=== PATIENT | female | born 1995 | race Caucasian/White ===

== ENCOUNTER 2020-10-02 15:28 | Outpatient (REF) | payer OTHER, SELFPAY | END 2020-10-02 15:29 | disposition home or self-care (01) | LOC: HO.LAB 15:28 | PROVIDERS: Visit Provider Internal Medicine | DX: Z20.828 Contact with and (suspected) exposure to other viral communicable diseases (principal) | CPT/HCPCS: C9803; U0003 ==

== ENCOUNTER → 2020-10-21 11:17 | Outpatient (BNVA) | payer OTHER, SELFPAY | PROVIDERS: PCP Internal Medicine; Visit Provider Obstetrics & Gynecology | DX: N91.2 Amenorrhea, unspecified (principal) | CPT/HCPCS: 99212 ==

== ENCOUNTER 2020-11-11 11:00 | Outpatient (REF) | payer OTHER, SELFPAY ==
[2020-11-13 19:17] LABS: C. trachomatis RNA TMA NOT DETECTED (NOT DETECTED); N. gonorrhoeae RNA TMA NOT DETECTED (NOT DETECTED)
== END 2020-11-11 11:01 | disposition home or self-care (01) ==
LOC: HO.LAB 11:00
PROVIDERS: PCP Internal Medicine; Visit Provider Obstetrics & Gynecology
DX: N93.9 Abnormal uterine and vaginal bleeding, unspecified (principal)
CPT/HCPCS: 36415; 81025; 87491; 87591; 99212

== ENCOUNTER 2020-11-17 09:38 | Outpatient (REF) | payer OTHER, SELFPAY ==
[2020-11-17 11:31] LABS: TSH reflex Free T4 0.49 mIU/mL (0.32-4.0)
[2020-11-18 06:28] LABS: Follicle Stimulating Hormone 11.2 mIU/mL; Prolactin 8.1 ng/mL
[2020-11-18 08:40] LABS: Syphilis Screen Nonreactive (Nonreactive)
[2020-11-18 09:16] LABS: HBsAGNum1 0.19 S/CO (0.00-0.99); HIV AB/AG Nonreactive (Nonreactive); HIV Num 1 0.09 S/CO (0.00-0.99); Hepatitis B Surface Antigen Negative (Negative)
[2020-11-19 00:27] LABS: C. trachomatis RNA TMA NOT DETECTED (NOT DETECTED); N. gonorrhoeae RNA TMA NOT DETECTED (NOT DETECTED)
[2020-11-21 12:13] LABS: Testosterone, Free 5.1 pg/mL (0.1-6.4); Testosterone, Total 37 ng/dL (2-45)
== END 2020-11-17 09:39 | disposition home or self-care (01) ==
LOC: HO.LAB 09:38
PROVIDERS: PCP Internal Medicine; Visit Provider Obstetrics & Gynecology
DX: N93.9 Abnormal uterine and vaginal bleeding, unspecified (principal); Z11.3 Encounter for screening for infections with a predominantly sexual mode of transmission
CPT/HCPCS: 36415; 83001; 84146; 84402; 84403; 84443; 86780; 87340; 87389; 87491; 87591

== ENCOUNTER 2020-11-19 10:56 | Outpatient (REF) | payer OTHER, SELFPAY ==
--- NOTE | 2020-11-19 11:00 | US_ITS ---
EXAMINATION: US PELVIS COMPLETE US PELVIS TRANSVAGINAL CLINICAL INFORMATION: Pelvic and perineal pain. COMPARISON: Pelvic ultrasound dated 09/03/2019 TECHNIQUE: Transabdominal and transvaginal imaging was performed. FINDINGS: The uterus is of normal size and echogenicity measuring 7.6 x 2.9 x 4 cm. A regular homogeneous endometrium is identified measuring 0.7 cm. Nabothian cysts are identified. The previously seen IUD is not present on the current examination. Both ovaries are of normal size and echogenicity. The right measures 2.9 x 1.8 x 2.3 cm for a volume of 6.3 mL. The left measures 2.4 x 1.7 x 2 cm for a volume of 4.3 mL. There is no pelvic free fluid. US/US transvaginal IMPRESSION: Unremarkable pelvic ultrasound.
--- NOTE | 2020-11-19 11:00 | US_ITS ---
EXAMINATION: US PELVIS COMPLETE US PELVIS TRANSVAGINAL CLINICAL INFORMATION: Pelvic and perineal pain. COMPARISON: Pelvic ultrasound dated 09/03/2019 TECHNIQUE: Transabdominal and transvaginal imaging was performed. FINDINGS: The uterus is of normal size and echogenicity measuring 7.6 x 2.9 x 4 cm. A regular homogeneous endometrium is identified measuring 0.7 cm. Nabothian cysts are identified. The previously seen IUD is not present on the current examination. Both ovaries are of normal size and echogenicity. The right measures 2.9 x 1.8 x 2.3 cm for a volume of 6.3 mL. The left measures 2.4 x 1.7 x 2 cm for a volume of 4.3 mL. There is no pelvic free fluid. US/US pelvic complete IMPRESSION: Unremarkable pelvic ultrasound.
== END 2020-11-19 10:57 | disposition home or self-care (01) ==
LOC: HO.US 10:56
PROVIDERS: Visit Provider Obstetrics & Gynecology
DX: R10.2 Pelvic and perineal pain (principal)
CPT/HCPCS: 76830; 76856

== ENCOUNTER 2021-07-23 16:05 | Emergency (ER) | payer OTHER, SELFPAY ==
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
[2021-07-23 18:25] VITALS: BP 114/64; PULSE 61; RESP 18; TEMP 36.9; O2SAT 99; BMI 29.9
[2021-07-23] MEDS: Acetaminophen 325 MG TABLET 650 MG PO (18:30)
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
--- NOTE | 2021-07-23 21:17 | PC.NURSE ---
x-ray obtained x-ray. awaiting for results.
--- NOTE | 2021-07-23 21:51 | PC.NURSE ---
splint applied to arm. pt tolerated well. pt verbalized u/s of d/c instructions and left ed ambulatory with steady even gait to wr.
== END 2021-07-23 22:02 | disposition home or self-care (01) ==
PROVIDERS: Emergency Provider Emergency Medicine Emergency Medical Services; PCP Internal Medicine
DX: S52.501A Unspecified fracture of the lower end of right radius, initial encounter for closed fracture (principal); S63.91XA Sprain of unspecified part of right wrist and hand, initial encounter; M25.531 Pain in right wrist; V43.52XA Car driver injured in collision with other type car in traffic accident, initial encounter; Y93.9 Activity, unspecified; Y92.410 Unspecified street and highway as the place of occurrence of the external cause; Y99.9 Unspecified external cause status; Z79.899 Other long term (current) drug therapy; F17.200 Nicotine dependence, unspecified, uncomplicated; Z71.6 Tobacco abuse counseling; F12.90 Cannabis use, unspecified, uncomplicated
CPT/HCPCS: 29130; 73110; 73130; 99283; 99284

== ENCOUNTER → 2021-07-26 11:04 | Outpatient (BNVA) | payer OTHER, SELFPAY | PROVIDERS: Visit Provider Physician Assistant | DX: S52.501A Unspecified fracture of the lower end of right radius, initial encounter for closed fracture (principal) | CPT/HCPCS: 25600; 29075 ==

== ENCOUNTER 2021-08-27 05:08 | Outpatient (REF) | payer OTHER, SELFPAY ==
--- NOTE | ~2021-08-27 | XR_ITS ---
EXAMINATION: XR WRIST, RIGHT CLINICAL INFORMATION: Pain in the right wrist COMPARISON: None TECHNIQUE: PA, lateral, and oblique views of the right wrist. FINDINGS: The distal radial intra-articular fracture seen on previous imaging is no longer visualized suggesting interval healing. The carpal rows are well aligned. Joint spaces are maintained. Soft tissues are unremarkable. XR/XR wrist RT min 3V IMPRESSION: Normal appearance of the right wrist. Interval healing of the intra-articular distal radial fracture.
== END 2021-08-27 05:09 | disposition home or self-care (01) ==
LOC: HO.HOSX 05:08
PROVIDERS: Visit Provider Physician Assistant
DX: S52.501D Unspecified fracture of the lower end of right radius, subsequent encounter for closed fracture with routine healing (principal)
CPT/HCPCS: 73110

== ENCOUNTER → 2021-09-28 12:26 | Outpatient (BNVA) | payer OTHER, SELFPAY | PROVIDERS: PCP Internal Medicine; Visit Provider Advanced Practice Midwife ==

== ENCOUNTER 2022-01-12 13:27 | Outpatient (REF) | payer OTHER, SELFPAY ==
[2022-01-13 05:26] LABS: CT PCR DETECTED (Not Detect.); NG PCR NOT DETECTED (Not Detect.)
[2022-01-13 15:44] LABS: BV Int Neg Control Negative (Negative); BV Int Pos Control Positive (Positive)
== END 2022-01-12 13:28 | disposition home or self-care (01) ==
LOC: HO.LAB 13:27
PROVIDERS: PCP Nurse Practitioner Family; Visit Provider Advanced Practice Midwife
DX: Z01.419 Encounter for gynecological examination (general) (routine) without abnormal findings (principal); N92.6 Irregular menstruation, unspecified; N89.8 Other specified noninflammatory disorders of vagina; Z20.2 Contact with and (suspected) exposure to infections with a predominantly sexual mode of transmission
CPT/HCPCS: 81025; 87480; 87491; 87510; 87591; 87660; 88142

== ENCOUNTER 2022-03-19 15:19 | Outpatient (REF) | payer OTHER, SELFPAY ==
[2022-03-19 16:04] LABS: Influenza A PCR POSITIVE (Negative); Influenza B PCR NEGATIVE (Negative); Resp Syncy Virus RNA Qual PCR NEGATIVE (Negative); SARS COV2 PCR INHOUSE NEGATIVE (Negative)
== END 2022-03-19 15:20 | disposition home or self-care (01) ==
LOC: HO.LNP 15:19
PROVIDERS: Visit Provider Nurse Practitioner Acute Care
DX: Z20.822 Contact with and (suspected) exposure to COVID-19 (principal); R68.89 Other general symptoms and signs
CPT/HCPCS: 0241U

== ENCOUNTER 2022-04-24 18:52 | Emergency (ER) | payer OTHER, SELFPAY ==
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
[2022-04-24 19:03] VITALS: BP 111/55; PULSE 82; RESP 16; TEMP 36.1; O2SAT 97; BMI 33.3
[2022-04-24] MEDS: Acetaminophen 325 MG TABLET 975 MG PO (19:37)
[2022-04-24] MEDS: Diphth,Pertus(ACell),Tet Adult 0.5 ML SYRINGE IM (20:38)
[2022-04-24 20:39] VITALS: RESP 16
[2022-04-24 21:02] VITALS: BP 123/56; PULSE 83; RESP 18; TEMP 36.6; O2SAT 98
[2022-04-24] MEDS: oxyCODONE HCl Immed Release 5 MG TABLET PO (21:38)
== END 2022-04-24 21:50 | disposition home or self-care (01) ==
PROVIDERS: Emergency Provider Emergency Medicine; PCP Internal Medicine
DX: S01.01XA Laceration without foreign body of scalp, initial encounter (principal); S06.0X0A Concussion without loss of consciousness, initial encounter; Y04.2XXA Assault by strike against or bumped into by another person, initial encounter; Y93.9 Activity, unspecified; Y92.830 Public park as the place of occurrence of the external cause; Y99.9 Unspecified external cause status
CPT/HCPCS: 12032; 70450; 72125; 90471; 90715; 99284

== ENCOUNTER 2022-06-01 21:02 | Emergency (ER) | payer OTHER, SELFPAY ==
[2022-06-01 21:11] VITALS: BP 105/42; PULSE 88; RESP 18; TEMP 36.8; O2SAT 96; BMI 33.3
[2022-06-01] MEDS: Acetaminophen 325 MG TABLET 650 MG PO (21:18)
--- NOTE | 2022-06-01 22:32 | ED.GENADULT ---
HPI - General Adult General Chief complaint: General Medical Stated complaint: ?insect bite left hand swelling Time Seen by Provider: 06/01/22 22:31 History of Present Illness HPI narrative: Patient is a 26-year-old female presents today with having possible insect bite to the left wrist. Complaining of swelling to the forearm. Patient is from home. No systemic complaints. No fever no chills. The insect bite occurred yesterday. The swelling has gotten worse. Positive itchiness positive blister Related Data Previous Rx's Medication Instructions Recorded loratadine 10 mg tablet 10 mg PO DAILY PRN for allergies 05/19/21 #21 tabs fluticasone propionate 50 1 spray intranasal DAILY #150 mL 05/31/21 mcg/actuation nasal spray,suspension (Flonase Allergy Relief) azithromycin 250 mg tablet See Rx Instructions PO .COMPLEX #6 03/19/22 tabs benzonatate 100 mg capsule 100 mg PO BID PRN cough #14 caps 03/19/22 guaifenesin 600 mg tablet, 600 mg PO BID #14 tabs 03/19/22 extended release 12 hr (Mucinex) cephalexin 500 mg capsule 500 mg PO TID 7 days #21 caps 06/01/22 Allergies Allergy/AdvReac Type Severity Reaction Status Date / Time No Known Allergies Allergy Verified 06/01/22 21:11 [No Known Allergies*] Review of Systems Review of Systems: No fever no chills no cough no congestion or upper respiratory symptoms no systemic complaints. Yes all other systems are reviewed and are negative PMFSH Past Medical History Attestation statement: The following information was validated with the patient. Medical History Metrorrhagia Surgical History History of cholecystectomy History of ear surgery Family History Family History Mother Substance use disorder Stomach cancer Father Substance use disorder Social History Social History Housing: Apartment Alcohol intake: never Patient Tobacco Use Status: Never used Tobacco e-Cigarette/Vaping Use: Currently Using Second Hand Smoke Exposure: No Substance Use Type: Marijuana Advance Directives: No Advance Directives Information Provided: No service: No Current occupational status: employed Gender identity: Female Physical Exam ED Vital Signs: Vital Signs - 24 hr 06/01/22 21:11 Temperature 98.2 F Pulse Rate 88 Respiratory Rate 18 Blood Pressure 105/42 L Pulse Oximetry 96 Oxygen Delivery Method Room Air BMI result Body Mass Index 33.3 Appearance: Alert. Oriented X3. No acute distress. Eyes: Pupils equal, round and reactive to light. ENT: Pharynx normal. Neck: Normal inspection. Neck supple. No lymph nodes noted. No crepitus CVS: Normal heart rate and rhythm. Pulses normal. Normal S1 and S2 Respiratory: No respiratory distress. Breath sounds normal. No Wheezing. No rales Abdomen: Soft and nontender. No rigidity. No distention. good BS x4 Skin: Skin warm and dry. Normal skin color. Normal skin turgor. Extremities: No lower extremity edema. Neurovascular intact to all extremities. No Lacerations. Examination of the left forearm shows blisters around the ulnar aspect of the left wrist. There is an area of redness that surrounds the wrist going all the way up approximately 2/3 of the forearm. There is slight redness. There is slight warmth to touch. Blanches. Neuro: Oriented X 3. No motor deficit. No sensory deficit. Moving all extermities. No slurred speech Medical Decision Making MDM Narrative Medical decision making narrative: Question allergic reaction versus infection. Given the extent of the rash will start patient on Keflex. Have patient follow-up closely on an outpatient basis. More likely this is a allergic reaction. She is in stable condition. Will discharge home. Discharge Plan Discharge Clinical Impression: Insect bite Patient Disposition: Home, Self-Care Instructions: Insect Bite or Sting (ED) Prescriptions: New cephalexin 500 mg capsule 500 mg PO TID 7 Days Qty: 21 0RF No Action loratadine 10 mg tablet 10 mg PO DAILY PRN (Reason: for allergies) Qty: 21 0RF fluticasone propionate [Flonase Allergy Relief] 50 mcg/actuation spray,suspension 1 spray intranasal DAILY Qty: 150 0RF Rx Instructions: administer into each nostril benzonatate 100 mg capsule 100 mg PO BID PRN (Reason: cough) Qty: 14 0RF azithromycin 250 mg tablet See Rx Instructions PO .COMPLEX Qty: 6 0RF Rx Instructions: For 250 mg dose pack: take 500 mg today (day 1), then 250 mg for 4 days (days 2-5) PO guaifenesin [Mucinex] 600 mg tablet extended release 12hr 600 mg PO BID Qty: 14 0RF Referrals: Swati Dangelo MD [Primary Care Provider] - 06/03/22
[2022-06-01] MEDS: cephALEXin 500 MG CAPSULE PO (23:17)
--- NOTE | 2022-06-01 23:18 | PC.NURSE ---
medicated per provider order.
== END 2022-06-01 23:20 | disposition home or self-care (01) ==
PROVIDERS: Emergency Provider Emergency Medicine Emergency Medical Services; PCP Internal Medicine
DX: S60.862A Insect bite (nonvenomous) of left wrist, initial encounter (principal); W57.XXXA Bitten or stung by nonvenomous insect and other nonvenomous arthropods, initial encounter; Y93.9 Activity, unspecified; Y92.9 Unspecified place or not applicable; Y99.9 Unspecified external cause status; Z79.899 Other long term (current) drug therapy
CPT/HCPCS: 99283

== ENCOUNTER 2023-01-26 08:50 | Outpatient (REF) | payer OTHER, SELFPAY | END 2023-01-26 08:51 | disposition home or self-care (01) | LOC: HO.LNP 08:50 | PROVIDERS: PCP Internal Medicine; Visit Provider Advanced Practice Midwife | DX: Z32.00 Encounter for pregnancy test, result unknown (principal) | CPT/HCPCS: 81025 ==

== ENCOUNTER 2023-01-26 09:44 | Outpatient (REF) | payer OTHER, SELFPAY ==
[2023-01-26 11:30] LABS: Thyroid Stimulating Hormone 1.51 uIU/mL (0.32-4.0)
[2023-01-26 16:06] LABS: CT PCR NOT DETECTED (Not Detect.); NG PCR NOT DETECTED (Not Detect.)
== END 2023-01-26 09:45 | disposition home or self-care (01) ==
LOC: HO.LAB 09:44
PROVIDERS: Visit Provider Advanced Practice Midwife
DX: N92.6 Irregular menstruation, unspecified (principal); N91.2 Amenorrhea, unspecified; Z20.2 Contact with and (suspected) exposure to infections with a predominantly sexual mode of transmission
CPT/HCPCS: 0353U; 84443

== ENCOUNTER → 2023-02-08 15:38 | Outpatient (BNVA) | payer OTHER, SELFPAY | PROVIDERS: PCP Internal Medicine; Visit Provider Advanced Practice Midwife ==

== ENCOUNTER → 2023-04-04 09:59 | Outpatient (BNVA) | payer OTHER, SELFPAY | PROVIDERS: PCP Internal Medicine; Visit Provider Advanced Practice Midwife | DX: Z30.09 Encounter for other general counseling and advice on contraception (principal); N92.6 Irregular menstruation, unspecified; Z32.02 Encounter for pregnancy test, result negative | CPT/HCPCS: 81025; 99212 ==

== ENCOUNTER 2023-05-22 10:47 | Outpatient (AMB) | payer OTHER, SELFPAY ==
[2023-05-22 10:54] VITALS: BP 118/74; BMI 36.9
--- NOTE | 2023-05-22 10:54 | MHC.OFFVIS ---
Intake Vital Signs 05/22/23 10:54 Height 5 ft 5 in Weight 222 lb BMI 36.9 BP 118/74 Intake Visit Reasons: STD Testing Supervisor Core Drilling Required: No Information Interpreted: non-clinical & clinical Intelligence Senior Sergeant: Intelligence Senior Sergeant Present (Lidia Yoo BRENNON) Accompanied by: Self / Same As Patient Allergies No Known Allergies [No Known Allergies*] Allergy (Verified 05/22/23 10:55) Is last menstrual period known: Yes Last menstrual period: 04/30/23 HPI HPI Comments History of Present Illness Details The patient is presenting for sexually transmitted disease screen, no vaginal discharge, no lesions identified and no specific sexually transmitted disease exposure according to the patient. [facility] Surgical History History of cholecystectomy History of ear surgery Family History Mother Substance use disorder Stomach cancer Father Substance use disorder Social History Housing: Apartment Alcohol intake: current Alcohol intake frequency: a few times a month Patient Tobacco Use Status: Current someday Tobacco user e-Cigarette/Vaping Use: Currently Using Second Hand Smoke Exposure: No Substance Use Type: Marijuana service: No Current occupational status: employed Sexual orientation: Straight/Heterosexual Gender identity: Female Female Reproductive History Menstrual Age of Menarche: 13 Date of last menstrual period: 04/30/23 Review of Systems Const All systems reviewed & are unremarkable except as noted in HPI and below Physical Exam Vital Signs: Last Vital Signs BP 118/74 05/22/23 10:54 BMI result Body Mass Index 36.9 General: Yes no CVA tenderness External Female Exam: normal external appearance and normal appearance of the urethra Speculum Exam - Vagina: normal appearance of the vagina, normal palpation, no lesions and no masses Speculum Exam - Cervix: normal appearance of the cervix, normal palpation, no lesions, no masses and nontender Bimanual exam- vagina & uterus: normal bimanual exam, normal palpation, uterine size normal, normal palpation, uterine shape normal, No Cervical tenderness present and non-tender Bimanual Exam- Adnexa, other: normal adnexae Back/Spine/Pelvis Back: no CVA tenderness Assessment & Plan Assessment & Plan (1) Screen for STD (sexually transmitted disease): Code(s): Z11.3 - Encounter for screening for infections with a predominantly sexual mode of transmission Plan: STD screening tests done includes: BV panel for trichomonas, GC/CT will send patient for serology std screening for HIV, RPR, Hep b s Ag, HepC Ab. Instructions given the patient to schedule a follow-up appointment for repeat serology screen in 6 months for possible false negatives. Orders: Orders Hepatitis B Surface Antigen Today Z20.2 - Contact with and (suspected) exposure to infections with a predominantly sexual mode of transmission Hepatitis C Antibody Today Z20.2 - Contact with and (suspected) exposure to infections with a predominantly sexual mode of transmission HIV Ab/Ag Today Z20.2 - Contact with and (suspected) exposure to infections with a predominantly sexual mode of transmission Syphilis Screen Today Z20.2 - Contact with and (suspected) exposure to infections with a predominantly sexual mode of transmission Coding Level of Care Code Est Pt Level 3 (15135) Diagnoses Screen for STD (sexually transmitted disease) Z11.3
== END 2023-05-22 11:00 | disposition home or self-care (01) ==
LOC: HO.HWS 10:48
PROVIDERS: PCP Internal Medicine; Visit Provider Obstetrics & Gynecology
DX: Z11.3 Encounter for screening for infections with a predominantly sexual mode of transmission (principal)
CPT/HCPCS: 99213

== ENCOUNTER 2023-05-22 10:47 | Outpatient (REF) | payer OTHER, SELFPAY ==
[2023-05-23 14:59] LABS: BV Int Neg Control Negative (Negative); BV Int Pos Control Positive (Positive)
== END 2023-05-22 10:48 | disposition home or self-care (01) ==
LOC: HO.LNP 10:47
PROVIDERS: PCP Internal Medicine; Visit Provider Obstetrics & Gynecology
DX: Z20.2 Contact with and (suspected) exposure to infections with a predominantly sexual mode of transmission (principal)
CPT/HCPCS: 87480; 87510; 87660; 99212

== ENCOUNTER 2023-05-22 11:08 | Outpatient (REF) | payer OTHER, SELFPAY ==
[2023-05-22 12:45] LABS: Syphilis Screen Nonreactive (Nonreactive)
[2023-05-22 18:18] LABS: CT PCR NOT DETECTED (Not Detect.); NG PCR NOT DETECTED (Not Detect.)
[2023-05-23 06:03] LABS: HBsAGNum1 0.35 S/CO (0.00-0.99); HIV AB/AG Nonreactive (Nonreactive); HIV Num 1 0.06 S/CO (0.00-0.99); Hepatitis B Surface Antigen Negative (Negative); ~HepC Num1 0.07 S/CO (0.00-0.79); ~Hepatitis C Antibody Nonreactive (Nonreactive)
== END 2023-05-22 11:09 | disposition home or self-care (01) ==
LOC: HO.LAB 11:08
PROVIDERS: Visit Provider Obstetrics & Gynecology
DX: Z20.2 Contact with and (suspected) exposure to infections with a predominantly sexual mode of transmission (principal)
CPT/HCPCS: 0353U; 86780; 86803; 87340; 87389

== ENCOUNTER 2023-07-20 12:56 | Outpatient (AMB) | payer OTHER, SELFPAY ==
[2023-07-20 13:13] VITALS: BP 110/70; BMI 36.6
--- NOTE | 2023-07-20 13:13 | MHC.OFFVIS ---
Intake Vital Signs 07/20/23 13:13 Height 5 ft 5 in Weight 220 lb BMI 36.6 BP 110/70 Intake Visit Reasons: Pill check Intake Note: The patient agreed to use of a medical instrument cable fabricator during this encounter. Scribed for ELE Johnson by Juhi Humphries medical instrument cable fabricator, on 07/20/2023 at 1:23 pm EST. Allergies No Known Allergies [No Known Allergies*] Allergy (Verified 07/20/23 13:13) Is last menstrual period known: Yes Last menstrual period: 05/31/23 HPI HPI Comments History of Present Illness Details She is here for OCP check today. Currently stopped taking the pill due to forgetting. She is other mejia doing well with OCP and wants to restart. Reports having trouble remembering to take OCP despite a cell phone alert. She admits to taking Melatonin at night before bed regularly. UPI 3 months ago, currently not sexually active. She is interested in natural ways of helping menses and weight loss. Reports having IUD in the past and it fell out. She denies any contraindications to control such as: migraines with aura, history of DVT or pulmonary emboli, high blood pressure, liver disease, thrombolic disorders, Lupus, +NADIA, or smoking. [facility] Surgical History History of cholecystectomy History of ear surgery Family History Mother Substance use disorder Stomach cancer Father Substance use disorder Social History Housing: Apartment Alcohol intake: current Alcohol intake frequency: a few times a month Patient Tobacco Use Status: Current someday Tobacco user e-Cigarette/Vaping Use: Currently Using Second Hand Smoke Exposure: No Substance Use Type: Marijuana service: No Current occupational status: employed Sexual orientation: Straight/Heterosexual Gender identity: Female Female Reproductive History Menstrual Age of Menarche: 13 Date of last menstrual period: 05/31/23 Physical Exam Vital Signs: Last Vital Signs BP 110/70 07/20/23 13:13 BMI result Body Mass Index 36.6 Const General: cooperative, healthy appearing, comfortable, no acute distress, well developed, alert and awake Results AMB Test Urine AMB Test Urine Negative Last Edit by BRENNON Lantigua on 07/20/23 13:31 Results Reviewed Results Reviewed: Laboratory Last Values Tst Clinic Negative 07/20/23 13:31 Assessment & Plan Assessment & Plan (1) Contraceptive surveillance: Code(s): Z30.40 - Encounter for surveillance of contraceptives, unspecified Plan: Discussed: D/w pt the different options of control. Continue TAMMY OCP. Advised to take it at night with melatonin supplement. Monitor her bleeding and contact the office with any concerns. She was instructed to go to ER if she develops loss of vision, severe headache that does not resolve, chest pain, difficulty breathing, abdominal pain, or pain or tenderness in extremity. Call the office with any concerns. Rx for TAMMY sent to pharmacy. Advised condoms always when sexually active. RTO when still taking OCP; last pack before it is done, can be done with her annual mold insert changer visit in early September. All of her questions and concerns were addressed to the best of my ability and shared decision making. She is agreeable to plan of care. Orders: Orders AMB HCG Urine Test Today Z32.02 - Encounter for test, result negative Medications: New drospirenone-ethinyl estradiol 3-0.02 mg (TAMMY (28)) 1 tab PO DAILY 84 tabs 0RF Coding Level of Care Code Est Pt Level 3 (46105) Diagnoses Contraceptive surveillance Z30.40
== END 2023-07-20 13:34 | disposition home or self-care (01) ==
PROVIDERS: Visit Provider Advanced Practice Midwife
DX: Z32.02 Encounter for pregnancy test, result negative (principal); Z30.40 Encounter for surveillance of contraceptives, unspecified
CPT/HCPCS: 99213

== ENCOUNTER → 2023-07-20 12:56 | Outpatient (BNVA) | payer OTHER, SELFPAY | PROVIDERS: Visit Provider Advanced Practice Midwife | DX: Z30.40 Encounter for surveillance of contraceptives, unspecified (principal) | CPT/HCPCS: 81025; 99212 ==

== ENCOUNTER 2023-12-11 12:20 | Outpatient (AMB) | payer OTHER, SELFPAY ==
--- NOTE | 2023-12-11 13:17 | AM.OFFWIN_ITS ---
Intake Vital Signs 12/11/23 13:18 Height 5 ft 5 in Weight 220 lb BMI 36.6 BP 112/70 Blood Pressure Location Rt brachial Position Sitting Pulse 82 Pulse Source Pulse Oximeter Temp 97.9 F Temp Source Oral Pulse Oximetry (%) 98 Intake Visit Reasons: EST/blood coming from ight ear, joint pain (lobby) Intake Note: pt is here for c.o blood on qtip yesterday in left ear, and would like a [place] blood test Patient Tobacco Use Status: Current someday Tobacco user Allergies No Known Allergies [No Known Allergies*] Allergy (Verified 12/11/23 14:17) Medication List - Last Reconciled 12/11/23 by Franky Barnard MD [id number] 3.5-10,000-1 mg/mL-unit/mL-% 4 drps otic (ears) Q8H Do you need a note to return to daycare/school/sports/work: No HPI EST/blood coming from ight ear, joint pain (lobby) HPI Details 27 yr old female presents to the office for a sick visit. Pt is reporting itching and discomfirt in the left ear. She used a Q tip and subsequently the left ear was bleeding. Minimal discomfirt today. Wants to be tested for lyme disease. Had a tick bite a month ago. [facility] Surgical History History of cholecystectomy History of ear surgery Family History Mother Substance use disorder Stomach cancer Father Substance use disorder Social History Housing: Apartment Alcohol intake: current Alcohol intake frequency: a few times a month Patient Tobacco Use Status: Current someday Tobacco user e-Cigarette/Vaping Use: Currently Using Second Hand Smoke Exposure: No Substance Use Type: Marijuana service: No Current occupational status: employed Sexual orientation: Straight/Heterosexual Gender identity: Female Female Reproductive History Menstrual Age of Menarche: 13 Physical Exam Vital Signs: Last Vital Signs Temp 97.9 F 12/11/23 13:18 Pulse 82 12/11/23 13:18 BP 112/70 12/11/23 13:18 Pulse Ox 98 12/11/23 13:18 BMI result Body Mass Index 36.6 HEENT Other: Left ear: Minor congestion in the ear canal. TM is intact. No mastoid tenderness. Assessment & Plan Assessment & Plan (1) Otitis externa of left ear: Code(s): H60.92 - Unspecified otitis externa, left ear Plan: neomycin drops called in. If sx do not improve to follow up here, (2) Tick bite: Code(s): W57.XXXA - Bitten or stung by nonvenomous insect and other nonvenomous arthropods, initial encounter Plan: Lyme titre ordered. will call with results. Orders: Orders Erythrocyte Sedimentation Rate Today W57.XXXA - Bitten or stung by nonvenomous insect and other nonvenomous arthropods, initial encounter Lyme IgG/IgM w/reflex to WB Today W57.XXXA - Bitten or stung by nonvenomous insect and other nonvenomous arthropods, initial encounter Medications: New syopeity-pyowojggg-NO 3.5-10,000-1 mg/mL-unit/mL-% 4 drps otic (ears) Q8H 10 mL 0RF Coding Level of Care Code Est Pt Level 3 (57141) Diagnoses Otitis externa of left ear H60.92 Tick bite W57.XXXA
[2023-12-11 13:18] VITALS: BP 112/70; PULSE 82; TEMP 36.6; O2SAT 98; BMI 36.6
== END 2023-12-11 14:36 | disposition home or self-care (01) ==
PROVIDERS: Visit Provider Internal Medicine
DX: H60.92 Unspecified otitis externa, left ear (principal); W57.XXXA Bitten or stung by nonvenomous insect and other nonvenomous arthropods, initial encounter
CPT/HCPCS: 99213

== ENCOUNTER 2023-12-11 14:16 | Outpatient (REF) | payer OTHER, SELFPAY ==
[2023-12-11 17:32] LABS: Erythrocyte Sedimentation Rate 17 MM/HR (0-20)
[2023-12-12 09:38] LABS: Lyme Abs Screen <0.90 index
== END 2023-12-11 14:17 | disposition home or self-care (01) ==
LOC: HO.HMGCLDS 14:16
PROVIDERS: Visit Provider Internal Medicine
DX: T14.8XXA Other injury of unspecified body region, initial encounter (principal); W57.XXXA Bitten or stung by nonvenomous insect and other nonvenomous arthropods, initial encounter; Y93.9 Activity, unspecified; Y92.9 Unspecified place or not applicable; Y99.9 Unspecified external cause status
CPT/HCPCS: 36415; 85652; 86617; 86618

== ENCOUNTER 2024-01-04 08:08 | Outpatient (AMB) | payer OTHER, SELFPAY ==
[2024-01-04 08:48] VITALS: BP 110/60; PULSE 86; TEMP 36.1; O2SAT 98; BMI 35.8
--- NOTE | 2024-01-04 08:48 | AM.OFFWIN_ITS ---
Intake Vital Signs 01/04/24 08:48 Height 5 ft 5 in Weight 215 lb BMI 35.8 BP 110/60 Blood Pressure Location Lt brachial Position Sitting Pulse 86 Pulse Source Pulse Oximeter Temp 97.0 F Temp Source Temporal Artery Scan Pulse Oximetry (%) 98 Oxygen Delivery Method Room Air Intake Visit Reasons: EP Sore throat [phone] Intake Note: pt is here today for sore throat started 2 days ago Patient Tobacco Use Status: Current someday Tobacco user Allergies No Known Allergies [No Known Allergies*] Allergy (Verified 01/04/24 08:49) Do you need a note to return to daycare/school/sports/work: No HPI HPI Comments History of Present Illness Details 28 y/o female patient who presents to [facility] in clinic with c/o sore- throat for 1 week. Denies any sick contacts. Denies fevers, chills, nausea or vomiting. She has been taking OTC remedies with minimal relief. [facility] Surgical History History of cholecystectomy History of ear surgery Family History Mother Substance use disorder Stomach cancer Father Substance use disorder Social History Housing: Apartment Alcohol intake: current Alcohol intake frequency: a few times a month Patient Tobacco Use Status: Current someday Tobacco user e-Cigarette/Vaping Use: Currently Using Second Hand Smoke Exposure: No Substance Use Type: Marijuana service: No Current occupational status: employed Sexual orientation: Straight/Heterosexual Gender identity: Female Female Reproductive History Menstrual Age of Menarche: 13 Physical Exam Vital Signs: Last Vital Signs Temp 97.0 F 01/04/24 08:48 Pulse 86 01/04/24 08:48 BP 110/60 01/04/24 08:48 Pulse Ox 98 01/04/24 08:48 Oxygen Delivery Method Room Air 01/04/24 08:48 BMI result Body Mass Index 35.8 Const General: comfortable and no acute distress Orientation/consciousness: patient oriented x3 HEENT Head: Yes normocephalic Ears: external ears normal and TM's normal bilaterally General nose exam: Normal nasal mucous membranes and turbinates present Face and sinus: Yes sinuses nontender Mouth: moist mucous membranes Throat: Yes posterior oropharynx normal Resp Effort & Inspection: normal respiratory effort, able to speak in complete sentences and no cough Auscultation: clear to auscultation bilaterally, no crackles, no rales, no rhonchi and no wheezes Cardio Rate: regular rate Rhythm: regular rhythm Neuro General: patient oriented x3 Results AMB Rapid Strep AMB Rapid Strep Negative Last Edit by Skylar Brock on 01/04/24 09:10 Results Reviewed Results Reviewed: Laboratory Last Values Strep Scn Rapid Clinic Negative 01/04/24 09:10 Assessment & Plan Assessment & Plan (1) Acute pharyngitis: Code(s): J02.9 - Acute pharyngitis, unspecified Qualifiers: Pharyngitis/tonsillitis etiology: unspecified etiology Qualified Code(s): J02.9 - Acute pharyngitis, unspecified Plan: - OTC remedies - Take medicine as directed. - Rest and warm fluids Orders: Orders SARS-CoV2/FLU/RSV Today J02.9 - Acute pharyngitis, unspecified Medications: New amoxicillin 500 mg PO BID 7 days 14 caps 0RF J02.9 - Acute pharyngitis, unspecified Coding Level of Care Code Est Pt Level 3 (95526) Diagnoses Acute pharyngitis, unspecified etiology J02.9 Pharyngitis/tonsillitis etiology: unspecified etiology Time Spent (min) 15
== END 2024-01-04 09:49 | disposition home or self-care (01) ==
PROVIDERS: Visit Provider Nurse Practitioner Family
DX: J02.9 Acute pharyngitis, unspecified (principal)
CPT/HCPCS: 87880; 99213

== ENCOUNTER 2024-01-04 09:42 | Outpatient (REF) | payer OTHER, SELFPAY ==
[2024-01-04 14:10] LABS: Influenza A PCR NEGATIVE (Negative); Influenza B PCR NEGATIVE (Negative); Resp Syncy Virus RNA Qual PCR NEGATIVE (Negative); SARS COV2 PCR INHOUSE NEGATIVE (Negative)
== END 2024-01-04 09:43 | disposition home or self-care (01) ==
LOC: HO.LAB 09:42
PROVIDERS: Visit Provider Nurse Practitioner Family
DX: J02.9 Acute pharyngitis, unspecified (principal); Z11.52 Encounter for screening for COVID-19; Z20.828 Contact with and (suspected) exposure to other viral communicable diseases
CPT/HCPCS: 0241U

== ENCOUNTER 2024-01-22 08:17 | Outpatient (AMB) | payer OTHER, SELFPAY ==
--- NOTE | 2024-01-22 08:18 | AM.OFFWIN_ITS ---
Intake Vital Signs 01/22/24 08:19 Height 5 ft 5 in Weight 214 lb 6 oz BMI 35.7 BP 100/62 Blood Pressure Location Rt brachial Position Sitting Pulse 79 Pulse Source Pulse Oximeter Temp 98.3 F Temp Source Oral Pulse Oximetry (%) 98 Oxygen Delivery Method Room Air Intake Visit Reasons: EP Something stuck in RT ear Intake Note: pt was itching her right ear with a q-tip and she got it stuck inside on Mon she says she noticed some drainage from her ear pt says she thinks she had an allergic reaction to something and toke an amoxicillin for this yesterday Patient Tobacco Use Status: Current someday Tobacco user Allergies No Known Allergies [No Known Allergies*] Allergy (Verified 01/22/24 08:22) Do you need a note to return to daycare/school/sports/work: No HPI EP Something stuck in RT ear HPI Details 28-year-old female presents to the [facility] for a sick visit. Patient believes she left a part of the Q-tip in the right ear on Monday. She has history of problems in the right ear, a tympanic membrane was recently patched. [facility] Surgical History History of cholecystectomy History of ear surgery Family History Mother Substance use disorder Stomach cancer Father Substance use disorder Social History Housing: Apartment Alcohol intake: current Alcohol intake frequency: a few times a month Patient Tobacco Use Status: Current someday Tobacco user e-Cigarette/Vaping Use: Currently Using Second Hand Smoke Exposure: No Substance Use Type: Marijuana service: No Current occupational status: employed Sexual orientation: Straight/Heterosexual Gender identity: Female Female Reproductive History Menstrual Age of Menarche: 13 Physical Exam Vital Signs: Last Vital Signs Temp 98.3 F 01/22/24 08:19 Pulse 79 01/22/24 08:19 BP 100/62 01/22/24 08:19 Pulse Ox 98 01/22/24 08:19 Oxygen Delivery Method Room Air 01/22/24 08:19 BMI result Body Mass Index 35.7 HEENT Other: Right ear: Ear canal mildly congested. Tympanic membrane dull. No foreign body seen. No mastoid tenderness. Assessment & Plan Assessment & Plan (1) Foreign body in right ear: Code(s): T16.1XXA - Foreign body in right ear, initial encounter Plan: Patient was informed that I did not see any foreign body. The cotton ball could have dissolved. She has a year no sort appointment coming up. I encouraged her to keep it. Coding Level of Care Code Est Pt Level 3 (23514) Diagnoses Foreign body in right ear T16.1XXA
[2024-01-22 08:19] VITALS: BP 100/62; PULSE 79; TEMP 36.8; O2SAT 98; BMI 35.7
== END 2024-01-22 10:16 | disposition home or self-care (01) ==
PROVIDERS: Visit Provider Internal Medicine
DX: T16.1XXA Foreign body in right ear, initial encounter (principal)
CPT/HCPCS: 99213

== ENCOUNTER 2024-01-23 08:22 | Outpatient (AMB) | payer OTHER, SELFPAY ==
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
[2024-01-23 08:25] VITALS: BP 100/64; BMI 35.6
== END 2024-01-23 09:04 | disposition home or self-care (01) ==
LOC: HO.HWS 08:22
PROVIDERS: Visit Provider Advanced Practice Midwife
DX: Z32.02 Encounter for pregnancy test, result negative (principal); Z01.419 Encounter for gynecological examination (general) (routine) without abnormal findings
CPT/HCPCS: 99395

== ENCOUNTER 2024-01-23 08:22 | Outpatient (REF) | payer OTHER, SELFPAY ==
[2024-01-24 05:40] LABS: CT PCR NOT DETECTED (Not Detect.); NG PCR NOT DETECTED (Not Detect.)
[2024-01-24 10:18] LABS: BV Int Neg Control Negative (Negative); BV Int Pos Control Positive (Positive)
== END 2024-01-23 08:23 | disposition home or self-care (01) ==
LOC: HO.LAB 08:22
PROVIDERS: Visit Provider Advanced Practice Midwife
DX: Z01.419 Encounter for gynecological examination (general) (routine) without abnormal findings (principal); N89.8 Other specified noninflammatory disorders of vagina
CPT/HCPCS: 0353U; 81025; 87480; 87510; 87660; 99395

== ENCOUNTER 2024-01-23 08:59 | Outpatient (REF) | payer OTHER, SELFPAY | END 2024-01-23 09:00 | disposition home or self-care (01) | LOC: HO.LNP 08:59 | PROVIDERS: Visit Provider Advanced Practice Midwife | DX: Z13.89 Encounter for screening for other disorder (principal) ==

== ENCOUNTER 2024-02-01 09:24 | Outpatient (AMB) | payer OTHER, SELFPAY ==
[2024-02-01 09:34] VITALS: BP 108/68; BMI 35.6
--- NOTE | 2024-02-01 09:34 | A.OFFVIS_ITS ---
Intake Vital Signs 02/01/24 09:34 Height 5 ft 5 in Weight 214 lb BMI 35.6 BP 108/68 Blood Pressure Location Lt brachial Position Sitting Intake Visit Reasons: amenenorrhea Information Interpreted: non-clinical & clinical Manager Telemetry: Manager Telemetry Present Accompanied by: Self / Same As Patient Allergies No Known Allergies [No Known Allergies*] Allergy (Verified 02/01/24 09:38) HPI HPI Comments History of Present Illness Details presenting complaining of 7 months amenorrhea with no associated hirsutism or nipple discharge any other concerns PFSH Medical History Amenorrhea Irregular menses Surgical History History of cholecystectomy History of ear surgery Family History Mother Substance use disorder Stomach cancer Father Substance use disorder Social History Housing: Apartment Alcohol intake: current Alcohol intake frequency: a few times a month Patient Tobacco Use Status: Current someday Tobacco user e-Cigarette/Vaping Use: Currently Using Second Hand Smoke Exposure: No Substance Use Type: Marijuana service: No Current occupational status: employed Sexual orientation: Straight/Heterosexual Gender identity: Female Female Reproductive History Menstrual Age of Menarche: 13 Review of Systems Const All systems reviewed & are unremarkable except as noted in HPI and below Physical Exam Vital Signs: Last Vital Signs BP 108/68 02/01/24 09:34 BMI result Body Mass Index 35.6 General: Yes no CVA tenderness External Female Exam: normal external appearance and normal appearance of the urethra Speculum Exam - Vagina: normal appearance of the vagina, normal palpation, no lesions and no masses Speculum Exam - Cervix: normal appearance of the cervix, normal palpation, no lesions, no masses and nontender Bimanual exam- vagina & uterus: normal bimanual exam, normal palpation, uterine size normal, normal palpation, uterine shape normal, No Cervical tenderness present and non-tender Bimanual Exam- Adnexa, other: normal adnexae Back/Spine/Pelvis Back: no CVA tenderness Results AMB Test Urine AMB Test Urine Negative Last Edit by Annemarie Briceno MA on 02/01/24 09:46 Assessment & Plan Assessment & Plan (1) Amenorrhea: Code(s): N91.2 - Amenorrhea, unspecified Plan: Urine test done in the office was negative. Discussed with the patient the possible causes of amenorrhea including but not limited to anovulation, thyroid and prolactin disorders, , end organ problems (uterine synechiae), medication side effects and others. The workup includes to start with UPT Which was done in the office and was negative this will be followed by a progesterone withdrawal test x 5 days if + bleeding this will be followed by TSH, PRL if negative then the diagnosis is anovulation. if no bleeding occurs will treat with Premarin x 21 days followed by Provera if no bleeding occurs will rule out Premature ovarian failure with FSH/LH. Instructions given the patient to schedule a 2 week follow-up appointment Orders: Orders AMB HCG Urine Test Today Z32.02 - Encounter for test, res ult negative TSH reflex Free T4 Today N91.2 - Amenorrhea, unspecified Prolactin Today N91.2 - Amenorrhea, unspecified HCG Quantitative Today N91.2 - Amenorrhea, unspecified Coding Level of Care Code Est Pt Level 3 (25699) Diagnoses Amenorrhea N91.2
== END 2024-02-01 09:52 | disposition home or self-care (01) ==
PROVIDERS: Visit Provider Obstetrics & Gynecology
DX: N91.2 Amenorrhea, unspecified (principal); Z32.02 Encounter for pregnancy test, result negative
CPT/HCPCS: 99213

== ENCOUNTER → 2024-02-01 09:24 | Outpatient (BNVA) | payer OTHER, SELFPAY | PROVIDERS: Visit Provider Obstetrics & Gynecology | DX: N91.2 Amenorrhea, unspecified (principal) | CPT/HCPCS: 81025; 99212 ==

== ENCOUNTER 2024-03-06 14:09 | Outpatient (REF) | payer OTHER, SELFPAY ==
[2024-03-06 16:38] LABS: HCG Quantitative < 2 mIU/mL; TSH reflex Free T4 2.25 uIU/mL (0.32-4.0)
== END 2024-03-06 14:10 | disposition home or self-care (01) ==
LOC: HO.LAB 14:09
PROVIDERS: Visit Provider Obstetrics & Gynecology
DX: N91.2 Amenorrhea, unspecified (principal)
CPT/HCPCS: 36415; 84146; 84443; 84702

== ENCOUNTER 2024-03-11 13:54 | Outpatient (AMB) | payer OTHER, SELFPAY ==
--- NOTE | 2024-03-11 13:54 | MHC.OFFVIS ---
Intake Visit Reasons: labs follow up Facility Engineer Required: No Information Interpreted: non-clinical & clinical Allergies No Known Allergies [No Known Allergies*] Allergy (Verified 03/11/24 13:55) HPI Comments Details: The patient is scheduled tele health visit for follow-up regarding amenorrhea. Urine test done in the office last visit was negative. TSH, prolactin, hCG, GC and chlamydia at BV panel all were negative. The patient is not sexually active [facility] Medical History Amenorrhea Irregular menses Surgical History History of cholecystectomy History of ear surgery Family History Mother Substance use disorder Stomach cancer Father Substance use disorder Social History Housing: Apartment Alcohol intake: current Alcohol intake frequency: a few times a month Patient Tobacco Use Status: Current someday Tobacco user e-Cigarette/Vaping Use: Currently Using Second Hand Smoke Exposure: No Substance Use Type: Marijuana service: No Current occupational status: employed Sexual orientation: Straight/Heterosexual Gender identity: Female Female Reproductive History Menstrual Age of Menarche: 13 Review of Systems Const All systems reviewed & are unremarkable except as noted in HPI and below Reports as per HPI and Reports no additional complaints GI Reports no additional complaints Reports no additional complaints Telehealth Telehealth Telehealth Platform: Telephone Location of provider rendering services: practice address Location of patient: address on file Patient Identification confirmed using: Name, : Yes Telehealth method: video Patient verbally consented to treatment: Yes Patient verbally consented to billing insurance company: Yes Patient informed of any privacy concerns related to visit: Yes Assessment & Plan Assessment & Plan (1) Amenorrhea: Code(s): N91.2 - Amenorrhea, unspecified Category: Medical Plan: Instructions given to patient to take a test make sure it is negative and report a positive test, if negative instructions given the patient to start Provera 10 mg p.o. q.d. for 5 days and schedule a 2 week follow-up appointment. If positive withdrawal test the working diagnosis will be anoovulatory amenorrhea, if negative withdrawal test will send prescription for Premarin 1.25 mg p.o. q.d. for 21 days with Provera 10 mg p.o. q.d. last 10 days. All questions answered, the patient verbalized understanding. I spent a total of 20 minutes reviewing the chart, talking to the patient via video and documenting in the medical record. Medications: New medroxyprogesterone (Provera) 10 mg PO daily 5 days 5 tabs 0RF Coding Level of Care Code Tele Est Pt Level 1 (65994) Diagnoses Amenorrhea N91.2
== END 2024-03-11 14:32 | disposition home or self-care (01) ==
LOC: HO.HWS 13:54
PROVIDERS: Visit Provider Obstetrics & Gynecology
DX: N91.2 Amenorrhea, unspecified (principal)
CPT/HCPCS: 99211

== ENCOUNTER → 2024-03-11 13:54 | Outpatient (BNVA) | payer OTHER, SELFPAY | PROVIDERS: Visit Provider Obstetrics & Gynecology ==

== ENCOUNTER 2025-01-14 11:27 | Emergency (ER) | payer OTHER, SELFPAY ==
--- NOTE | ~2025-01-14 | XR_ITS ---
EXAMINATION: XR CHEST CLINICAL INFORMATION: pain COMPARISON: June 12, 2015. TECHNIQUE: Frontal view of the chest was obtained. FINDINGS: No consolidation, pleural effusion or pneumothorax. No hyperinflation. Cardiomediastinal silhouette is normal. Osseous structures are intact. XR/XR chest 1V IMPRESSION: No acute airspace disease. Normal chest x-ray. Electronically signed by: Matt Kaye MD 01/14/2025 12:02 PM EDT
--- NOTE | 2025-01-14 11:27 | ECG_ITS ---
Test Reason : cp Blood Pressure : */* mmHG Vent. Rate : 108 BPM Atrial Rate : 108 BPM P-R Int : 152 ms QRS Dur : 76 ms QT Int : 318 ms P-R-T Axes : 60 45 63 degrees QTcB Int : 426 ms Sinus tachycardia Otherwise normal ECG When compared with ECG of 12-Jun-2015 13:06, No significant change was found Referred By: Jenna Sandoval Electronically Signed By: Omar Chacon
[2025-01-14 11:29] VITALS: BP 133/65; PULSE 119; RESP 20; TEMP 37.9; O2SAT 96; BMI 37.3
--- NOTE | 2025-01-14 11:33 | ED.GENADULT ---
HPI - General Adult General Chief complaint: Upper Respiratory Symptoms Stated complaint: Chest pain, sore throat Time Seen by Provider: 01/14/25 13:31 Source: patient Limitations: no limitations History of Present Illness ED Provider: Jenna Sandoval PA-C HPI narrative: 29-year-old female presents with cough and cold symptoms x5 days. Associated fever, dry repetitive cough and pain with breathing. Denies active GI symptoms, no sick contacts with similar symptoms. The patient does not smoke tobacco. Related Data Previous Rx's ?Medication ?Instructions ?Recorded medroxyprogesterone 10 mg tablet 10 mg PO daily 5 days #5 tabs 03/11/24 (Provera) albuterol sulfate 90 mcg/actuation 2 puff inhalation Q4-6H PRN 01/14/25 aerosol inhaler bronchospasm 7 days #6.7 grams Allergies Allergy/AdvReac Type Severity Reaction Status Date / Time No Known Allergies Allergy Verified 01/14/25 11:32 [No Known Allergies*] Review of Systems Review of Systems: Yes all other systems are reviewed and are negative Constitutional: Constitutional: Reports fatigue, Reports fever(s) and Reports malaise Cardiovascular: Cardiovascular: Reports chest pain and Reports dyspnea Respiratory: Respiratory: Denies chest congestion, Reports cough, Reports dyspnea and Denies wheezing Gastrointestinal: Gastrointestinal: Denies diarrhea, Denies nausea and Denies vomiting Endocrine: Endocrine: Reports fatigue Allergic/Immunologic: Allergic/Immunologic: Denies wheezing PMFSH Past Medical History Attestation statement: The following information was validated with the patient. Medical History Amenorrhea Irregular menses Surgical History History of cholecystectomy History of ear surgery Family History Family History Mother Substance use disorder Stomach cancer Father Substance use disorder Social History Social History Housing: Apartment Alcohol intake: current Alcohol intake frequency: a few times a month Patient Tobacco Use Status: Current someday Tobacco user e-Cigarette/Vaping Use: Currently Using Second Hand Smoke Exposure: No Substance Use Type: Marijuana Advance Directives: No Advance Directives Information Provided: Yes Do you have a plan to hurt others: No Plan service: No Current occupational status: employed Sexual orientation: Straight/Heterosexual Gender identity: Female Physical Exam ED Vital Signs: Vital Signs - 24 hr 01/14/25 11:29 Temperature 100.2 F Pulse Rate 119 H Respiratory Rate 20 Blood Pressure 133/65 Pulse Oximetry 96 BMI result Body Mass Index 37.3 Const Other: Alert Orientation/consciousness: patient oriented x3 Resp Other: Nonlabored respirations, active bronchospasm cough Cardio Other: Normal peripheral perfusion Skin Other: Warm dry no rash Neuro General: patient oriented x3, gait normal, no focal motor deficits and CN's II-XI intact bilaterally Psych Other: Cooperative Course Course Course Narrative: This is a rapid medical exam performed by Jenna Sandoval PA-C. The patient is a 29-year-old female who presents with cough and cold symptoms x5 days. Associated chest tightness when she coughs. On exam her lungs are clear to auscultation, she is febrile, her oxygen is appropriate. We will be screening EKG, basic labs, trop, SARs and chest x-ray, treating the fever with Tylenol. The patient was stable and can return to the waiting room pending her full medical assessment. Medications Administered Discontinued Medications Generic Name Dose Route Start Last Admin Trade Name Freq PRN Reason Stop Dose Admin Acetaminophen 975 mg 01/14/25 11:30 01/14/25 11:36 Acetaminophen 325 Mg Tablet PO 01/14/25 11:31 975 mg ONCE ONE Administration Medical Decision Making Medical Decision Making [facility] Narrative: 29-year-old female presents with cough and cold symptoms x5 days. Associated fever, dry repetitive cough and pain with breathing. Denies active GI symptoms, no sick contacts with similar symptoms. The patient does not smoke tobacco. No chronic issues History: Per patient I have considered the following differential diagnoses: Viral syndrome, bronchitis, pneumonia, costochondritis, ACS Plan: Patient here she is febrile, she likely has a influenza. We will be screening basic labs in addition to a viral panel and a chest x-ray. Thought about ACS, but she likely has costochondritis in the setting of underlying viral illness as cause for her chest discomfort. To note she has no risk factors for ACS, we will add a trop and EKG. I have independently reviewed the following tests: Labs: No leukocytosis, not anemic, no electrolyte abnormality, troponin negative, not , positive for influenza B Chest x-ray: XR/XR chest 1V IMPRESSION: No acute airspace disease. Normal chest x-ray. EKG: Sinus tachycardia, rate of 108, no ischemic changes no ectopy QTC 4-6 Lab Data 01/14/25 11:55 01/14/25 11:55 Labs: Lab Results 01/14/25 Range/Units 11:55 WBC 8.4 (4.8-10.8) X10*3/uL RBC 4.46 (4.20-5.50) X10*6/uL Hgb 12.8 (12.0-16.0) g/dl Hct 38.3 (37.0-47.0) % MCV 85.9 (80.0-98.0) fL MCH 28.7 (27.0-33.0) pg MCHC 33.4 (31.0-35.0) g/dl RDW 13.8 (11.0-16.0) % Plt Count 237 (160-400) X10*3/uL MPV 9.3 L (9.4-12.3) fL Immature Gran % (Auto) 0.2 (0.0-0.4) % Neut % (Auto) 66.2 (45-73) % Lymph % (Auto) 20.1 (20-40) % [place] % (Auto) 9.5 (2-11) % Eos % (Auto) 3.6 (0-4) % Baso % (Auto) 0.4 (0-2) % Lymph # (Auto) 1.7 (1.2-4.9) X10*3/uL [place] # (Auto) 0.8 (0.1-1.2) X10*3/uL Eos # (Auto) 0.3 (0.0-0.4) X10*3/uL Baso # (Auto) 0.0 (0.0-0.2) X10*3/uL Abs Immat Gran (auto) 0.02 (0.00-0.03) X10*3/uL Absolute Neuts (auto) 5.6 (2.0-8.3) x10*3/uL Absolute Nucleated RBC 0.000 (0.0-0.012) X10*3/uL Nucleated RBC % (auto) 0.0 (0.0-0.2) /100WBC Sodium 138 (135-145) mmol/L Potassium 3.9 (3.3-5.1) mmol/L Chloride 105 (96-108) mmol/L Carbon Dioxide 25 (22-29) mmol/L Anion Gap 12 (12-20) BUN 6 L (9-16) mg/dL Creatinine 0.82 (0.5-1.4) mg/dL Estim Creat Clear Calc 120.7 Estimated GFR > 60 Random Glucose 112 (60-115) mg/dL Calcium 9.6 (8.4-10.2) mg/dL Magnesium 1.7 (1.6-2.6) mg/dL Troponin I High Sens < 2.7 (<3.5-17.0) ng/L Beta HCG, Quant < 2 mIU/mL Influenza Type A (PCR) NEGATIVE (Negative) Influenza Type B (PCR) POSITIVE A (Negative) RSV RNA Qual (PCR) NEGATIVE (Negative) SARS-CoV-2 RNA (RT-PCR) NEGATIVE (Negative) Discharge Plan Discharge Clinical Impression: Influenza B, Fever Patient Disposition: Home, Self-Care Instructions: Fever in Adults (ED), Influenza (ED), Bronchospasm (ED) Additional Instructions: You tested positive for influenza B. The remainder of your screening labs were normal including a cardiac enzyme. There were no concerning changes on your EKG in the chest x-ray is clear. See home care instructions. For fever, body ache and headache you can alternate between the use of [id number] ibuprofen 600 mg taken every 6 hours with food, with [id number] Tylenol 1000 mg taken every 8 hours. Use the inhaler as needed for your cough. Follow up with your primary care provider as needed. Prescriptions: New albuterol sulfate 90 mcg/actuation HFA aerosol inhaler 2 puff inhalation Q4-6H PRN (Reason: bronchospasm) 7 Days Qty: 6.7 0RF No Action medroxyprogesterone [Provera] 10 mg tablet 10 mg PO daily 5 Days Qty: 5 0RF Print Language: [place] Zealander
[2025-01-14] MEDS: Acetaminophen 325 MG TABLET 975 MG PO (11:36)
[2025-01-14 11:59] LABS: MANUAL DIFF FLAG NO
[2025-01-14 12:03] LABS: Basophils Percent Auto 0.4 % (0-2); Eosinophils Absolute Auto 0.3 X10*3/uL (0.0-0.4); Eosinophils Percent Auto 3.6 % (0-4); Hematocrit 38.3 % (37.0-47.0); Hemoglobin 12.8 g/dl (12.0-16.0); Imm Gran Abs Auto 0.02 X10*3/uL (0.00-0.03); Imm Gran Pct Auto 0.2 % (0.0-0.4); Lymphocytes Absolute Auto 1.7 X10*3/uL (1.2-4.9); Lymphocytes Percent Auto 20.1 % (20-40); Mean Corpuscular HGB Conc 33.4 g/dl (31.0-35.0); Mean Corpuscular Hemoglobin 28.7 pg (27.0-33.0); Mean Corpuscular Volume 85.9 fL (80.0-98.0); Mean Platelet Volume 9.3 fL (9.4-12.3); Monocytes Absolute Auto 0.8 X10*3/uL (0.1-1.2); Monocytes Percent Auto 9.5 % (2-11); Neutrophils Absolute Auto 5.6 x10*3/uL (2.0-8.3); Neutrophils Percent Auto 66.2 % (45-73); Platelet Count 237 X10*3/uL (160-400); Red Blood Count 4.46 X10*6/uL (4.20-5.50); Red Cell Distribution Width 13.8 % (11.0-16.0); White Blood Count 8.4 X10*3/uL (4.8-10.8)
[2025-01-14 12:23] LABS: Anion Gap 12 (12-20); Blood Urea Nitrogen 6 mg/dL (9-16); Calcium 9.6 mg/dL (8.4-10.2); Carbon Dioxide 25 mmol/L (22-29); Chloride 105 mmol/L (96-108); Creatinine Clr Calc Pharmacy 120.7; Estimated Glomerular Filt Rate > 60; Glucose Random 112 mg/dL (60-115); HCG Quantitative < 2 mIU/mL; Magnesium 1.7 mg/dL (1.6-2.6); Potassium 3.9 mmol/L (3.3-5.1); Sodium 138 mmol/L (135-145); Troponin-I High Sensitivity < 2.7 ng/L (<3.5-17.0)
[2025-01-14 12:47] LABS: Influenza A PCR NEGATIVE (Negative); Influenza B PCR POSITIVE (Negative); Resp Syncy Virus RNA Qual PCR NEGATIVE (Negative); SARS COV2 PCR INHOUSE NEGATIVE (Negative)
[2025-01-14 13:33] VITALS: BP 116/59; PULSE 117; RESP 20; TEMP 37.3; O2SAT 95
[2025-01-14 13:44] VITALS: BP 116/59; PULSE 117; RESP 20; TEMP 37.3; O2SAT 95
== END 2025-01-14 13:44 | disposition home or self-care (01) ==
PROVIDERS: Physician Assistant Medical; Emergency Provider Emergency Medicine
DX: J10.1 Influenza due to other identified influenza virus with other respiratory manifestations (principal); R05.9 Cough, unspecified; R50.9 Fever, unspecified; R07.9 Chest pain, unspecified
CPT/HCPCS: 0241U; 36415; 71045; 80048; 83735; 84484; 84702; 85025; 93005; 99283

== ENCOUNTER → 2025-01-14 11:27 | Outpatient (BNV) | payer OTHER, SELFPAY | PROVIDERS: Emergency Provider Emergency Medicine; Visit Provider Internal Medicine Cardiovascular Disease | DX: R07.9 Chest pain, unspecified (principal); R00.0 Tachycardia, unspecified | CPT/HCPCS: 93010 ==

== ENCOUNTER → 2025-01-14 11:30 | Outpatient (BNV) | payer OTHER, SELFPAY | PROVIDERS: Visit Provider Radiology Diagnostic Radiology | DX: R07.9 Chest pain, unspecified (principal) | CPT/HCPCS: 71045 ==

== ENCOUNTER 2025-01-23 08:35 | Outpatient (REF) | payer OTHER, SELFPAY ==
[2025-01-23 13:03] LABS: Bacterial Vaginosis PCR POSITIVE (Negative); Candida Group PCR NOT DETECTED (Not Detect); Candida glab krusei PCR NOT DETECTED (Not Detect); Trichomonas vaginalis PCR NOT DETECTED (Not Detect)
[2025-01-23 13:33] LABS: CT PCR NOT DETECTED (Not Detect.); NG PCR NOT DETECTED (Not Detect.)
== END 2025-01-23 08:36 | disposition home or self-care (01) ==
LOC: HO.LNP 08:35
PROVIDERS: Visit Provider Advanced Practice Midwife
DX: Z01.419 Encounter for gynecological examination (general) (routine) without abnormal findings (principal); Z20.2 Contact with and (suspected) exposure to infections with a predominantly sexual mode of transmission; N91.2 Amenorrhea, unspecified
CPT/HCPCS: 81025; 81515; 87491; 87591; 88175; 99395; 99459

== ENCOUNTER 2025-01-23 08:35 | Outpatient (AMB) | payer OTHER, SELFPAY ==
[2025-01-23 08:39] VITALS: BP 110/68; BMI 38.3
--- NOTE | 2025-01-23 08:39 | A.OFFVIS_ITS ---
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 Patient had move to [facility] and relocated back a month ago to the area. Regular monthly menses. Currently is sexually active. She denies vaginal itching and irritation. STI screening offered; she accepts. She tries to eat healthy and stays active with exercise. Denies family history of breast, ovarian or colon cancer. Last pap smear 2021, negative. [facility] Medical History Amenorrhea Irregular menses Surgical History History of cholecystectomy History of ear surgery Family History Mother Substance use disorder Stomach cancer Father Substance use disorder Social History Housing: Apartment Alcohol intake: current Alcohol intake frequency: a few times a month Patient Tobacco Use Status: Current someday Tobacco user e-Cigarette/Vaping Use: Currently Using Second Hand Smoke Exposure: No Substance Use Type: Marijuana service: No Current occupational status: employed Sexual orientation: Straight/Heterosexual Gender identity: Female Female Reproductive History Menstrual Age of Menarche: 13 control method: none Total pregnancies: 1 Full term: 1 Number of Living Children: 1 Date of last pap smear: 01/12/22 (neg) Review of Systems Const All systems reviewed & are unremarkable except as noted in HPI and below Reports as per HPI Eyes Reports no additional complaints ENT Reports no additional complaints Card Reports no additional complaints Resp Reports no additional complaints GI Reports as per HPI and Reports no additional complaints Reports as per HPI Musc Reports no additional complaints Skin/Breast Reports as per HPI Neuro Reports no additional complaints Psych Reports no additional complaints Endo Reports no additional complaints Genaro/Lymph Reports no additional complaints Aller/Immun Reports no additional complaints Physical Exam Vital Signs: Last Vital Signs BP 110/68 01/23/25 08:39 BMI result Body Mass Index 38.3 Const General: cooperative, healthy appearing, no acute distress, well developed and alert Orientation/consciousness: patient oriented x3 HEENT Head: Yes normal to inspection Eyes General: appearance normal, both eyes and all related structures Neck Neck: Yes normal visual inspection Thyroid: Thyroid normal Chest Chest palpation & inspection: normal inspection of the chest and other (no puckering, dimpling, peau de orange, retraction, discharge, masses) Breast/axilla inspection: normal inspection of the breasts Breast/axilla palpation: normal palpation of the breasts Resp Effort & Inspection: normal respiratory effort GI Inspection: Yes normal to inspection Palpation (GI): Soft to palpation Rectal Exam - Female: deferred General: Yes bladder normal to palpation External Female Exam: normal external appearance and normal appearance of the urethra Speculum Exam - Vagina: normal appearance of the vagina, normal palpation and normal vaginal discharge Speculum Exam - Cervix: normal appearance of the cervix and normal palpation Bimanual exam- vagina & uterus: normal bimanual exam, normal palpation, uterine size normal, bladder normal to palpation, normal palpation and non-tender Bimanual Exam- Adnexa, other: no masses Skin General skin exam: no rashes or lesions noted Rashes: no rashes Neuro General: patient oriented x3 Cognition (Neuro): normal cognition Extrem General: Yes normal to inspection Psych Attitude: cooperative Thought process: Normal thought process present Results AMB Test Urine AMB Test Urine Negative Last Edit by BRENNON Lantigua on 01/23/25 08:50 Results Reviewed Results Reviewed: Laboratory Last Values Tst Clinic Negative 01/23/25 08:49 Assessment & Plan Assessment & Plan (1) Encounter for well woman exam with routine gynecological exam: Code(s): Z01.419 - Encounter for gynecological examination (general) (routine) without abnormal findings Category: Medical Plan: Discussed: Current recommendations for pap smears per ASCCP guidelines. Breast awareness and periodic breast exams. Maintain a healthy lifestyle including a well balanced diet and routine exercise. Use condoms for STI and prevention. Patient verbalizes understanding and agrees to the plan of care. She was given opportunity to ask questions and all questions were answered to the best of my ability. RTO in one year for annual technician telecommunication systems examination. This note is constructed using voice recognition software. While every effort has been made to ensure accuracy, lithographic press feeder errors may have been included. (2) Amenorrhea: Code(s): N91.2 - Amenorrhea, unspecified Category: Medical Plan Discuss: Previous lab work, common causes for amenorrhea, the role of overweight in obesity affect on hormonal balance, strongly recommended healthy diet weight reduction, medication use, how often to take, anticipatory guidance. Prevention of anovulatory cycles and protection of endometrium to prevent possible development of abnormal cellular changes that could lead to uterine cancer in the future. Advised to call if no menses or withdrawal bleed noted. Schedule a six-month follow up or call sooner as needed p.r.n.. Orders: Orders CT NG by PCR Today Z20.2 - Contact with and (suspected) exposure to infections with a predominantly sexual mode of transmission Syphilis Screen Today Z20.2 - Contact with and (suspected) exposure to infections with a predominantly sexual mode of transmission Hepatitis B Core Antibody Today Z20.2 - Contact with and (suspected) exposure to infections with a predominantly sexual mode of transmission AMB HCG Urine Test Today N91.2 - Amenorrhea, unspecified Bacterial Vaginosis Panel Today Z20.2 - Contact with and (suspected) exposure to infections with a predominantly sexual mode of transmission Pap Smear Today Z01.419 - Encounter for gynecological examination (general) (routine) without abnormal findings HIV Ab/Ag Today Z20.2 - Contact with and (suspected) exposure to infections with a predominantly sexual mode of transmission Hepatitis C Antibody Reflex Today Z20.2 - Contact with and (suspected) exposure to infections with a predominantly sexual mode of transmission Medications: Changed From medroxyprogesterone (Provera) 10 mg PO daily 5 days 5 tabs 0RF To medroxyprogesterone (Provera) repeat if no menses monthly as directed 10 mg PO daily 30 tabs 1RF 5 days Coding Level of Care Code Est Pt Prev Care 18-39y(45690) Diagnoses Encounter for well woman exam with routine gynecological exam Z01.419 Amenorrhea N91.2
--- OUTSIDE RECORDS SUMMARY | 2025-01-23 09:09 | XMS_ITS | Data Portability ---
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 She is now in a foster placement with the [facility] that is nurturing, and caring and safe. I think that it will be good to get new evaluation from the school and then [facility] in about 3-4 months again. I wonder whether she is more capable than the testing in the past has indicated More than 45 minutes spent with this patient and her family [email or web address] [id number] Not available 05/30/2011 02:09:26 10/07/2010 10/07/2010 R OM suppurative URI sx tx [email or web address] [id number] Not available 05/30/2011 02:09:03 11/05/2010 11/05/2010 This almost 15 yo female wit history of being in DCF custody for many years finally in a great home. Hx hearing loss R ear - to be seen by ENT next week Therapy to be started with mom and patient with Shani Alex in a few weeks Intellectually, Madison is able to surf the net and research her interests, she was able to? ? ?read fluently from an internet passage that I picked out from [employer] without any trouble I doubt that her borderline IQ testing is accurate and the retesting is to take place with the [facility] psych soon I disc with mom that I will call DCF Shani Alex and Jena Armando next week to disc theses issues Recheck of ear from OM last week and is normal Recheck here in 3 months Cont with BP and Clinda More than 45 minutes spent Forms filled out for ANKUR as well Lily Armando ? lactose intolerance [email or web address] [id number] Not available 07/13/2011 02:02:29 Plan of Treatment Reminders Order Date Submit Date Provider Last Modified By Organization Details Last Modified Time Details Appointments None recorded. Lab None recorded. Referral audiologi st referral - please eval hearing in this child with hx of LD 2009 010 [facility] [address] [place] [address] [address], [address], 3 03:06:17 Procedures None recorded. Surgeries None recorded. Imaging None recorded. Medication Orders amoxicill in 400 mg/5 mL oral suspensio n 2009 010 [id number], [address] [place] [address], [phone], 3 03:06:38 Zyrtec 10 mg chewable tablet 2009 010 [id number], [address], [place], [phone], 3 03:06:17 Patient TargetsNo targets recorded. Patient Instructions Encounter Date Encounter Id Patient Instructions Last Modified By Organization Details Last Modified Time 09/09/2010 [id number] hearing screening* CYNTHIA Not available 05/24/2013 03:06:17 Disc with Mrs. Harry that I would like to be involved in the school issues involving Madison [email or web address] [id number] Not available 05/30/2011 02:09:26 09/20/2010 [id number] Rx:? Claritin-D x? 7 d? d/c Zyrtec for now [email or web address] [id number] Not available 07/13/2011 02:02:01 10/29/2010 [id number] valsalva; observe; await ENT (hearing eval) ; NO Q TIPS [id number] [id number] Not available 05/30/2011 02:09:15 Reason for Referral please eval hearing in this child with hx of LD Referring Physician: Radha Pinon, Pediatric Medicine, Encounter Date: 09/09/2010 Results Created Date Observation Date Name Description Value Unit Range Abnormal Flag Note LastModifiedBy Organization Detail LastModifiedTime 09/09/20 10 09/09/2010 hearleslie rodriguez scree braden* Right Fail Not Available [facility] [address] [place], [address], 09/09/2010 17:11:29 09/09/20 10 09/09/2010 hearleslie rodriguez scree braden* Left Pass Not Available [facility] [address] [place], [address], 09/09/2010 17:11:29 Result Notes None recorded. Problems Name Problem SNOMED Code Status Onset Date Resolution Date Notes Provider Name and Address Organization Details Recorded Time Nervous system symptoms Active 2007 Not Available [facility] 3 03:02:03 Contusion 026839868 Completed 08/06/2010 Not Available [facility] 3 03:02:03 Adjustment disorder 41190324 Active Not Available [facility] 3 03:02:03 Constipati on 41958402 Active 2007 Not Available [facility] 3 03:02:03 Allergic rhinitis 01639987 Active Not Available [facility] 3 03:02:03 Impacted cerumen 31714257 Completed 08/06/2010 Not Available [facility] 3 03:02:03 Sprain of ankle 23570460 Completed 08/06/2010 Not Available [facility] 3 03:02:03 Nonvenomou s insect bite of multiple sites 633229349 Completed 08/06/2010 Not Available [facility] 3 03:02:03 Single major depressive episode Active Not Available [facility] 3 03:02:03 Abnormal weight loss 110976883 Active 2007 Not Available [facility] 3 03:02:03 Dysfunctio n of eustachian tube 36836590 Active Not Available [facility] 3 03:02:03 Non-suppur ative otitis media with eustachian tube disorder 642521620 Completed 200808/06/2010 Not Available [facility] 3 03:02:03 Non-suppur ative otitis media with eustachian tube disorder 246693583 Active Not Available [facility] 3 03:02:03 Speech and language developmen rufina delay due to hearing loss 868917045 Active Not Available [facility] 3 03:02:03 Otalgia 53853635 Active Not Available [facility] 3 03:02:03 Otalgia 42127568 Completed 200808/06/2010 Not Available [facility] 3 03:02:03 Unilateral sensorineu ral hearing loss with unrestrict ed hearing on the contralate ral side Active Not Available [facility] 3 03:02:03 Otitis externa 5046947 Completed 200708/06/2010 Not Available [facility] 3 03:02:03 Acne 47145743 Active 2007 Not Available [facility] 3 03:02:03 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 Procedures Surgical History Date Name Laterality Status Provider Name and Address Organization Details Recorded Time 0 Wax Removal with Curette Unilateral With or Without Irrigation completed Beau Hudson MA [facility] 07/26/2010 13:43:51 Imaging Results None recorded. Procedure Notes None recorded. Medical Equipment None Reported. Allergies No known drug allergies Medications Name Sig Start Date Stop Date Status Note LastModified by Organization Details LastModified Time amoxicilli n 600 mg-potassi um clavulanat e 42.9 mg/5 mL oral suspension 12 ml po BID for 10 days 2009 active Not Available Not Available Not Avai lable clindamyci n 1 % topical gel Apply a thin film to affected area(s) by topical route 2 times per day 2009 active PRN Not Available Not Available Not Avai lable tretinoin 0.025 % topical gel Apply to the affected area(s) by topical route every 2 -3 days to start and then slowly advance to once daily. Apply to complete ly dry skin. Disconti nue if irritati on or inflamma tion develops 2009 active PRN Not Available Not Available Not Avai lable benzoyl peroxide 10 % topical gel Apply a thin film to the affected skin areas by topical route once daily 2009 active PRN Not Available Not Available Not Avai lable cetirizine 5 mg/5 mL oral syrup Take 10 mL every day by oral route for 30 days. 2009 active Not Available Not Available Not Avai lable amoxicilli n 400 mg/5 mL oral suspension Take 2.5 tsp twice a day by oral route for 10 days. 10/17 completed Not Available Not Available Not Available fluticason e propionate 50 mcg/actuat ion nasal spray,susp ension [place] 2 sprays every day by intranas al route. 2009 active PRN Not Available Not Available Not Avai lable ibuprofen 100 mg chewable tablet Chew 4 tablets every 6-8 hours for pain as needed 2009 active PRN Not Available Not Available Not Avai lable neomycin-p olymyxin-h ydrocort 3.5 mg-10,000 unit/mL-1 % ear drops,susp Instill 4 drops into affected ear(s) by otic route 3 times per day 2009 active Not Available Not Available Not Avai lable ciprofloxa prudence 0.3 %-dexameth asone 0.1 % ear drops,susp ension Instill 4 drops into affected ear(s) by otic route 2 times per day for 7 days 2009 active Not Available Not Available Not Avai lable cetirizine 10 mg chewable tablet CHEW 1 TABLET BY MOUTH ONCE DAILY PRN ALLERGIE S active Not Available Not Available No t Available Zyrtec active QD PRN Not Available Not Availa ble Not Available Differin 0.3 % topical gel APPLY TO AFFECTED AREA ONCE A DAY.STAR T EVERY 3 DAYS AND SLOWLY INCREASE TO EVERY 2 DAYS.DAVID ID EYES 2009 active PRN Not Available Not Available Not Avai lable Epiduo 0.1 %-2.5 % topical gel APPLY BY TOPICAL ROUTE ONCE DAILY TO ENTIRE AFFECTED AREA AFTER WASHING 2009 active signed on paper and sent in Not Available Not Available Not Available Vitals Date Recorded Body height Body weight Body mass index (BMI) Systolic blood pressure Diastolic blood pressure Provider Name and Address Organization Details Last Updated DateTime 09/09/2010 162.56 cm 95731.09 7465 g 24.8 kg/m2 110 mm[Hg] 72 mm[Hg] [facility] 16:36:59 Date Recorded Body height Body weight Body mass index (BMI) Provider Name and Address Organization Details Last Updated DateTime 11/05/2010 163.195 cm 48032.00961 g 25.4 kg/m2 Marielena [facility] 11/05/2010 16:33:24 Social History Question Answer Notes LastModified by Organizat ion Details LastModified Time Parent's Marital Status Unmarried NEW FOSTER PLACEMENT WITH THE [facility] Information not available 09/03/2011 Siblings Pearl, Renita, Dali,ajith, Evie Information not available 09/03/2011 Parent's Name Dahlia Fabian Moved Out Of [facility] By [facility] In 06/08 Information not available 09/03/2011 Parent's Name Akhil Craft Information not available 09/03/2011 Sex: Unknown Functional Status None recorded. Mental Status None recorded. Family History Nothing Reported. Medical History Condition Response CARDIAC PROBLEMS N ALLERGIC AND IMMUNOLOGIC PROBLEMS N DEVELOPMENTAL/ BEHAVIORAL PROBLEMS N MUSCLE/ JOINT/ BONE PROBLEMS N DERMATOLOGIC PROBLEMS/ECZEMA N HOSPITALIZATIONS N ENT PROBLEMS/OTITIS MEDIA/ CHRONIC Y RENAL PROBLEMS N HEMATOLOGIC /ONCOLOGIC PROBLEMS N ACCIDENTS INJURIES N NEUROLOGIC/ SEIZURES OR CONVULSIONS N ADHD N ENDOCRINE PROBLEMS/DIABETES N HEADACHES/MIGRAINES/DIZZINESS N GI PROBLEMS/CONSTIPATION N CONGENITAL AND GENETIC PROBLEMS N ORTHOPEDIC PROBLEMS N CHICKEN POX / VARICELLA HISTORY or POSIT LEYLA TITER Y PUMONARY PROBLEMS/ ASTHMA N PSYCH PROBLEMS Y Gynecological HistoryNo gynecological history recorded. Obstetrics History GPAL:G 0 P 0 0 0 0 Immunizations Vaccine Type Date Status Note Provider Nam e and Address Organization Details Recorded Time IPV 0 completed Not Available [facility] 09/03/2011 03:18:24 meningococcal ACWY, unspecified formulation 8 completed Not Available [facility] 09/03/2011 03:19:20 Hep B, unspecified formulation 7 completed Not Available [facility] 09/03/2011 03:18:24 IPV 0 completed Not Available [facility] 09/03/2011 03:18:24 Hep B, unspecified formulation 7 completed Not Available [facility] 09/03/2011 03:18:24 IPV 1 completed Not Available [facility] 09/03/2011 03:18:24 DTaP, unspecified formulation 7 completed Not Available [facility] 09/03/2011 03:18:24 MMR 0 completed Not Available [facility] 09/03/2011 03:18:24 Hib, unspecified formulation 0 completed Not Available [facility] 09/03/2011 03:18:24 DTaP, unspecified formulation 0 completed Not Available [facility] 09/03/2011 03:18:24 Hib, unspecified formulation 7 completed Not Available [facility] 09/03/2011 03:18:24 DTaP, unspecified formulation 0 completed Not Available [facility] 09/03/2011 03:18:24 Hep B, unspecified formulation 0 completed Not Available [facility] 09/03/2011 03:18:24 MMR 1 completed Not Available [facility] 09/03/2011 03:19:20 DTaP, unspecified formulation 1 completed Not Available [facility] 09/03/2011 03:18:24 IPV 7 completed Not Available [facility] 09/03/2011 03:18:24 Tdap 8 completed Not Available [facility] 09/03/2011 03:18:24 Influenza, split virus, trivalent, preservative 0 completed Not Available [facility] 11/16/2019 02:35:05 Past Encounters Encounter ID Performer Location Encounter Start Date Encounter Closed Date Diagnosis/Indication Diagnosis SNOMED-CT Code Diagnosis ICD10 Code Diagnosis Note [id number] P[facility] [place] [place] [address] 12/21/2007 11:11:00 12/21/2007 12:29:45 [id number] PVP [place] [facility] [address] [facility] [place] [address] 05/07/2008 13:49:42 07/09/2009 01:23:50 [id number] [place] [place] [place] [address] 05/30/2008 15:01:12 05/30/2008 15:46:18 [id number] PVP [place] w [address] [place], [place] [address] [place] [address] 06/10/2008 13:33:13 06/10/2008 14:06:47 [id number] PVP [place] w [address] [place] [address] [place] [address] 12/15/2008 16:10:04 07/09/2009 01:23:50 [id number] P[facility] [place] [address] [place] [address] 05/29/2009 09:39:05 05/29/2009 10:35:56 [id number] PVP [place] [address] [facility] [address] 07/01/2009 11:31:23 07/01/2009 11:54:43 [id number] P[facility] [place] [address] [place] [address] 02/16/2010 13:24:39 02/16/2010 13:57:59 [id number] PVP [place] [address] [facility] [address] 05/06/2010 16:11:24 05/06/2010 16:44:17 [id number] P[facility] [place] [address] [place] [address] 06/16/2010 14:41:11 06/16/2010 15:22:29 [id number] P[facility] [place] w [address] [place] [address] 07/26/2010 13:05:58 07/26/2010 14:57:23 [id number] P[facility] [place] [facility] [address] [place] [address] 08/06/2010 10:00:12 08/06/2010 10:40:13 [id number] PVP [place] [facility] [address] [place] [address] 09/09/2010 16:27:03 09/09/2010 18:02:49 [id number] PVP [place] [address] [place] [address] 09/20/2010 09:15:38 09/20/2010 09:49:51 [id number] PVP [place] [address] [place] [address] 10/07/2010 17:00:25 10/07/2010 17:47:47 [id number] PVP [place] w [address] [place] [address] 10/29/2010 10:55:50 10/29/2010 11:33:41 [id number] P[facility] [place] [facility] [address] [place] [address] 11/05/2010 16:05:08 11/05/2010 17:52:48 Health Concerns Section Related Observation LastModified by Organization Detai ls LastModified Time None Recorded Concern Status LastModified by Organization Details LastModified Time None Recorded Advance Directives Directive None Recorded Payers Encounter Date Sequence Insurance Name Policy Number Policy Lowery Covered Member ID Lowery Member ID Guarantor Name 09/09/2010 1 [place] [facility] Craft [id number] Dahlia Simon 09/20/2010 1 [place] [facility] Craft [id number] Dahlia Simon 10/07/2010 1 [place] [facility] Craft [id number] Dahlia Simon 10/29/2010 1 [place] [facility] Katie Craft [id number] Dahlia Simon 11/05/2010 1 [place] [facility] Katie Craft [id number] Dahlia Simon OBGyn Episode No OBEpisode recorded.
== END 2025-01-23 09:08 | disposition home or self-care (01) ==
LOC: HO.HWS 08:36
PROVIDERS: Visit Provider Advanced Practice Midwife
DX: Z01.419 Encounter for gynecological examination (general) (routine) without abnormal findings (principal); N91.2 Amenorrhea, unspecified
CPT/HCPCS: 99395; 99459

== ENCOUNTER 2025-01-23 09:03 | Outpatient (REF) | payer OTHER, SELFPAY | END 2025-01-23 09:04 | disposition home or self-care (01) | LOC: HO.LAB 09:03 | PROVIDERS: Visit Provider Advanced Practice Midwife | DX: Z13.89 Encounter for screening for other disorder (principal) ==

== ENCOUNTER 2025-03-06 13:04 | Outpatient (AMB) | payer OTHER, SELFPAY ==
--- NOTE | 2025-03-06 13:07 | A.OFFVIS_ITS ---
Intake Visit Reasons: vaginal cyst Intake Note: pt c/o bump on labia Software Project Engineer: Software Project Engineer Present (Saira) Allergies No Known Allergies [No Known Allergies*] Allergy (Verified 03/06/25 13:07) Is last menstrual period known: Yes Last menstrual period: 03/05/25 HPI Comments Details: Patient is here today with concerns that she has found a painful right labial kristie mp 2 weeks ago, last week became increasingly tender, opened up and bagan draining. Currently not sexually active. LMP started today. PFSH Medical History Amenorrhea Irregular menses Surgical History History of cholecystectomy History of ear surgery Family History Mother Substance use disorder Stomach cancer Father Substance use disorder Social History Housing: Apartment Alcohol intake: current Alcohol intake frequency: a few times a month Patient Tobacco Use Status: Current someday Tobacco user e-Cigarette/Vaping Use: Currently Using Second Hand Smoke Exposure: No Substance Use Type: Marijuana service: No Current occupational status: employed Sexual orientation: Straight/Heterosexual Gender identity: Female Female Reproductive History Menstrual Age of Menarche: 13 Date of last menstrual period: 03/05/25 Review of Systems Const All systems reviewed & are unremarkable except as noted in HPI and below Endo Reports no additional complaints Physical Exam Const General: cooperative, healthy appearing and no acute distress Other: External inspection only: Lower right labial sebaceous gland cyst approximately 0.5 cm rounded slightly tender and draining yellow discharge, no erythema or edema or signs of infection. Psych Appearance: well kempt Attitude: cooperative Thought process: Normal thought process present Assessment & Plan Assessment & Plan (1) Sebaceous cyst of labia: Code(s): N90.7 - Vulvar cyst Plan Discuss findings of a sebaceous gland inflamed and draining without signs of infection. Advised warm compresses, cleaned with mild soap and warm water, rinse well, use of cotton loose clothing. Comfort measures Tylenol p.r.n. if needed, report any signs of infection increased tenderness, redness, swelling. The patient expressed understanding and agreement with the plan of care. All of her questions and concerns were addressed to the best of my ability. This note is constructed using voice recognition software. While every effort h as been made to ensure accuracy, platform mill supervisor errors may have been included. Annual exam as scheduled. Coding Level of Care Code Est Pt Level 3 (64516) Diagnoses Sebaceous cyst of labia N90.7
--- OUTSIDE RECORDS SUMMARY | 2025-03-06 14:12 | XMS_ITS | Data Portability ---
Author Organization [place] - [facility], [facility] Address [address] [place] [id number] Assessment Encounter Date Assessment Date Assessment LastModified by Organization Details LastModified Time 09/09/2010 09/09/2010 LD- likely LD but I believe that the testing done is not accurate - await new IEP testing ACNE - epiduo samples given insurance won't pay HEARING - to Greg for full eval ALLERGIES-trial Zyrtec- if not better to dining room attendant cafeteria for testing [employer]- Dr. Blakely 3 year IEP eval at [facility] end of this month- to [facility] eval in [place] when available BANNERBILTS x 3 indicate no ADHD but + LD and emotional issues My impression is that testing on Madison has been done ([id number]) when she has been in midst of significant upheaval. She is now in a foster placement with the [facility] that is nurturing, and caring and safe. I think that it will be good to get new evaluation from the school and then [facility] in about 3-4 months again. I [...] internet passage that I picked out from [employer] without any trouble I doubt that her borderline IQ testing is accurate and the retesting is to take place with the [facility] psych soon I disc with mom [...] child with hx of LD 2009 010 [facility] ([facility]), [address] [place] [address] [address], [place], [address], 3 03:06:17 Procedures None recorded. Surgeries None recorded. Imaging None recorded. Medication Orders amoxicill in 400 mg/5 mL oral suspensio n 2009 010 [id number], [address] [place] [address], [id number], 3 03:06:38 Zyrtec 10 mg chewable tablet 2009 010 [facility][id number], [address], [place], [id number], 3 03:06:17 Patient TargetsNo targets recorded. Patient Instructions Encounter Date Encounter Id Patient Instructions Last Modified By Organization Details Last Modified Time 09/09/2010 [id number] hearing screening* CYNTHIA Not available 05/24/2013 03:06:17 Disc with Mrs. Harry that I would like to be involved in the school issues involving Madison [email or web address] [id number] Not available 05/30/2011 02:09:26 09/20/2010 [id number] Rx:? Claritin-D x? 7 d? d/c Zyrtec for now [email or web address] [id number] Not available 07/13/2011 02:02:01 10/29/2010 [id number] valsalva; observe; await ENT (hearing eval) ; NO Q TIPS [email or web address] [id number] Not available 05/30/2011 02:09:15 Reason for Referral please eval hearing in this child with hx of LD Referring Physician: Radha Pinon, Pediatric Medicine, Encounter Date: 09/09/2010 Results Created Date Observation Date Name Description Value Unit Range Abnormal Flag Note LastModifiedBy Organization Detail LastModifiedTime 09/09/20 10 09/09/2010 hearleslie rodriguez scree braden* Right Fail Not Available [facility] [address] [place], [address], 09/09/2010 17:11:29 09/09/20 10 09/09/2010 hearleslie rordiguez scree braden* Left Pass Not Available [facility] [address] [place], [address], 09/09/2010 17:11:29 Result Notes None recorded. Problems Name Problem SNOMED Code Status Onset Date Resolution Date Notes Provider Name and Address Organization Details Recorded Time Nervous system symptoms Active 2007 Not Available [facility] 3 03:02:03 Contusion 436705117 Completed 08/06/2010 Not Available [facility] 3 03:02:03 Adjustment disorder 66456673 Active Not Available [facility] 3 03:02:03 Constipati on 96582335 Active 2007 Not Available [facility] 3 03:02:03 Allergic rhinitis 55910170 Active Not Available [facility] 3 03:02:03 Impacted cerumen 35568507 Completed 08/06/2010 Not Available [facility] 3 03:02:03 Sprain of ankle 55726279 Completed 08/06/2010 Not Available [facility] 3 03:02:03 Nonvenomou s insect bite of multiple sites 287907240 Completed 08/06/2010 Not Available [facility] 3 03:02:03 Single major depressive episode Active Not Available [facility] 3 03:02:03 Abnormal weight loss 240806995 Active 2007 Not Available [facility] 3 03:02:03 Dysfunctio n of eustachian tube 13357826 Active Not Available [facility] 3 03:02:03 Non-suppur ative otitis media with eustachian tube disorder 497295282 Completed 200808/06/2010 Not Available [facility] 3 03:02:03 Non-suppur ative otitis media with eustachian tube disorder 171770539 Active Not Available [facility] 3 03:02:03 Speech and language developmen rufina delay due to hearing loss 641616232 Active Not Available [facility] 3 03:02:03 Otalgia 00620773 Active Not Available [facility] 3 03:02:03 Otalgia 94164815 Completed 200808/06/2010 Not Available [facility] 3 03:02:03 Unilateral sensorineu ral hearing loss with unrestrict ed hearing on the contralate ral side Active Not Available [facility] 3 03:02:03 Otitis externa 0136658 Completed 200708/06/2010 Not Available [facility] 3 03:02:03 Acne 22079068 Active 2007 Not Available [facility] 3 03:02:03 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 Procedures Surgical History Date Name Laterality Status Provider Name and Address Organization Details Recorded Time 0 Wax Removal with Curette Unilateral With or Without Irrigation completed Beau Hudson [facility] 07/26/2010 13:43:51 Imaging Results [...] propionate 50 mcg/actuat ion nasal spray,susp ension [place] 2 sprays every day by intranas al [...] Details Last Updated DateTime 09/09/2010 162.56 cm 10557.09 7465 g 24.8 kg/m2 110 mm[Hg] 72 mm[Hg] [facility] 16:36:59 Date Recorded Body height Body weight Body mass index (BMI) Provider Name and Address Organization Details Last Updated DateTime 11/05/2010 163.195 cm 61240.77466 g 25.4 kg/m2 Marielena [facility] 11/05/2010 16:33:24 Social History Question Answer Notes LastModified by Organizat ion Details LastModified Time Parent's Marital Status Unmarried NEW FOSTER PLACEMENT WITH THE [facility] Information not available 09/03/2011 Siblings Pearl, Renita, Dali,ajith, Evie Information not available 09/03/2011 Parent's Name Dahlia Fabian Moved Out Of [facility] Into [facility] By [facility] In 06/08 Information not available 09/03/2011 Parent's [...] Recorded Time IPV 0 completed Not Available [facility] 09/03/2011 03:18:24 meningococcal ACWY, unspecified formulation 8 completed Not Available [facility] 09/03/2011 03:19:20 Hep B, unspecified formulation 7 completed Not Available [facility] 09/03/2011 03:18:24 IPV 0 completed Not Available [facility] 09/03/2011 03:18:24 Hep B, unspecified formulation 7 completed Not Available [facility] 09/03/2011 03:18:24 IPV 1 completed Not Available [facility] 09/03/2011 03:18:24 DTaP, unspecified formulation 7 completed Not Available [facility] 09/03/2011 03:18:24 MMR 0 completed Not Available [facility] 09/03/2011 03:18:24 Hib, unspecified formulation 0 completed Not Available [facility] 09/03/2011 03:18:24 DTaP, unspecified formulation 0 completed Not Available [facility] 09/03/2011 03:18:24 Hib, unspecified formulation 7 completed Not Available [facility] 09/03/2011 03:18:24 DTaP, unspecified formulation 0 completed Not Available [facility] 09/03/2011 03:18:24 Hep B, unspecified formulation 0 completed Not Available [facility] 09/03/2011 03:18:24 MMR 1 completed Not Available [facility] 09/03/2011 03:19:20 DTaP, unspecified formulation 1 completed Not Available [facility] 09/03/2011 03:18:24 IPV 7 completed Not Available [facility] 09/03/2011 03:18:24 Tdap 8 completed Not Available [facility] 09/03/2011 03:18:24 Influenza, split virus, trivalent, preservative 0 completed Not Available [facility] 11/16/2019 02:35:05 Past Encounters Encounter ID Performer Location Encounter Start Date Encounter Closed Date Diagnosis/Indication Diagnosis SNOMED-CT Code Diagnosis ICD10 Code Diagnosis Note [id number] Radha Pinon MD [facility] [address] [place] [address] 12/21/2007 11:11:00 12/21/2007 12:29:45 [id number] Radha Pinon MD [facility] [address] [place] [address] 05/07/2008 13:49:42 07/09/2009 01:23:50 [id number] Radha Pinon MD [facility] [address] [place] [address] 05/30/2008 15:01:12 05/30/2008 15:46:18 [id number] Topher Couch MD [facility] [address] [place] [address] 06/10/2008 13:33:13 06/10/2008 14:06:47 [id number] Radha Pinon MD [facility] [address] [place] [address] 12/15/2008 16:10:04 07/09/2009 01:23:50 [id number] Eliana Arreola MD [facility] [address] [place] [address] 05/29/2009 09:39:05 05/29/2009 10:35:56 [id number] Beau Hudson MD [facility] [address] [place] [address] 07/01/2009 11:31:23 07/01/2009 11:54:43 [id number] Beau Hudson MD [facility] [address] [place] [address] 02/16/2010 13:24:39 02/16/2010 13:57:59 [id number] Radha Pinon MD [facility] [address] [place] [address] 05/06/2010 16:11:24 05/06/2010 16:44:17 [id number] Radha Pinon MD [facility] [address] [place] [address] 06/16/2010 14:41:11 06/16/2010 15:22:29 [id number] Beau Hudson MD [facility] [address] [place] [address] 07/26/2010 13:05:58 07/26/2010 14:57:23 [id number] Radha Pinon MD [facility] [address] [place] [address] 08/06/2010 10:00:12 08/06/2010 10:40:13 [id number] Radha Pinon MD [facility] [address] [place] [address] 09/09/2010 16:27:03 09/09/2010 18:02:49 [id number] Joao Evans MD [facility] [address] [place] [address] 09/20/2010 09:15:38 09/20/2010 09:49:51 [id number] Radha Pinon MD [facility] [address] [place] [address] 10/07/2010 17:00:25 10/07/2010 17:47:47 [id number] Beau Hudson MD [facility] [address] [place] [address] 10/29/2010 10:55:50 10/29/2010 11:33:41 [id number] Radha Pinon MD [facility] [address] [place] [address] 11/05/2010 16:05:08 11/05/2010 17:52:48 Health Concerns Section Related Observation LastModified by Organization Detai ls LastModified Time None Recorded Concern Status LastModified by Organization Details LastModified Time None Recorded Advance Directives Directive None Recorded Payers Encounter Date Sequence Insurance Name Policy Number Policy Lowery Covered Member ID Lowery Member ID Guarantor Name 09/09/2010 1 [place] Craft [id number] Dahlia Simon 09/20/2010 1 [place] [id number] Dahlia Simon 10/07/2010 1 [place] [facility] Katie Craft [id number] Dahlia Simon 10/29/2010 1 [place] [id number] Dahlia Aurora 11/05/2010 1 [place] [facility] Katie Craft [id number] Dahlia Simon OBGyn Episode No OBEpisode recorded.
== END 2025-03-06 13:57 | disposition home or self-care (01) ==
LOC: HO.HWS 13:04
PROVIDERS: Visit Provider Advanced Practice Midwife
DX: N90.7 Vulvar cyst (principal)
CPT/HCPCS: 99213

== ENCOUNTER → 2025-03-06 13:04 | Outpatient (BNVA) | payer OTHER, SELFPAY | PROVIDERS: Visit Provider Advanced Practice Midwife | DX: N90.7 Vulvar cyst (principal) | CPT/HCPCS: 99212 ==

== ENCOUNTER 2025-03-30 19:51 | Emergency (ER) | payer OTHER, SELFPAY ==
--- NOTE | ~2025-03-30 | CT_ITS ---
CLINICAL HISTORY: Periumbilical hernia with tenderness CT abdomen and pelvis with contrast Comparison: None Findings: The lung bases are clear. Status post cholecystectomy. No intra or extrahepatic ductal dilation. Solid organs are within normal limits. No urolithiasis. No bowel obstruction, pneumoperitoneum, or pneumatosis. A 2.3 cm left adnexal cyst pelvic structures are otherwise unremarkable. Normal appendix. A 2.2 cm fat only containing supraumbilical hernia. Moderate inflammatory changes of the herniated fat. No acute fracture. IMPRESSION: A 2.2 cm fat only containing supraumbilical hernia. Moderate inflammatory changes of the herniated fat concerning for incarcerated/ strangulation of the herniated fat. Otherwise, no acute disease within the abdomen or pelvis. Left adnexal 2.3 cm cyst. This document has been electronically signed by: Genna Obando MD on 03/30/2025 23:08:56
[2025-03-30 19:55] VITALS: BP 114/64; PULSE 86; RESP 20; TEMP 36.6; O2SAT 94; BMI 36.6
--- NOTE | 2025-03-30 19:56 | ED.ABDPAIN ---
HPI - Abdominal Pain General Chief Complaint: General Medical Stated Complaint: hernia above belly button hurts 06/08 also has cold Time Seen by Provider: 03/30/25 19:56 Source: patient Mode of arrival: ambulatory Limitations: no limitations History of Present Illness ED Provider: Ben Diego DO HPI narrative: 29-year-old female presents to the ED for an evaluation of periumbilical hernia in the setting of a cough with upper respiratory infection and wheezing. I received a call from urgent care and the patient was administered bronchodilator therapy with improvement. She has had a cough 4 days without fevers. The cough is productive of brown sputum. Patient reported a lump near her belly button and urgent care provider post concern for possible strangulation or incarceration of hernia and sent for further evaluation. Patient states she 1st noted the lump 2 days ago when she was having a coughing fit. She states it is intermittently painful, not painful at this time. She has had no vomiting or diarrhea. She reports some improvement with her cough since its onset and does not feel short of breath and is without chest pain or fevers today. Related Data Previous Rx's ?Medication ?Instructions ?Recorded albuterol sulfate 90 mcg/actuation 2 puff inhalation Q4-6H PRN 01/14/25 aerosol inhaler bronchospasm 7 days #6.7 grams medroxyprogesterone 10 mg tablet 10 mg PO daily 5 days #30 tabs 01/23/25 (Provera) ibuprofen 600 mg tablet 600 mg PO Q6H PRN fever or pain 03/30/25 #30 tabs Allergies Allergy/AdvReac Type Severity Reaction Status Date / Time No Known Allergies Allergy Verified 03/30/25 19:56 [No Known Allergies*] Review of Systems Review of Systems Yes all other systems are reviewed and are negative [facility] Past Medical History Medical History Amenorrhea Irregular menses Surgical History History of cholecystectomy History of ear surgery Family History Family History Mother Substance use disorder Stomach cancer Father Substance use disorder Social History Social History Housing: Apartment Alcohol intake: current Alcohol intake frequency: a few times a month Patient Tobacco Use Status: Current someday Tobacco user Smoked in Last 30 Days: No e-Cigarette/Vaping Use: Currently Using Second Hand Smoke Exposure: No Use of substances other than those prescribed or required for medical reasons: No Substance Use Type: Marijuana Advance Directives: No Advance Directives Information Provided: No Patient : No service: No Current occupational status: employed Sexual orientation: Straight/Heterosexual Gender identity: Female Physical Exam ED Vital Signs: Vital Signs - 24 hr 03/30/25 19:55 03/30/25 21:47 03/31/25 00:10 Temperature 97.9 F 97.6 F Pulse Rate 86 79 80 Respiratory Rate 20 18 20 Blood Pressure 114/64 116/65 118/73 Pulse Oximetry 94 97 98 Oxygen Delivery Method Room Air Room Air Room Air BMI result Body Mass Index 36.6 Constitutional: ?Alert, oriented, speaking in full sentences HEENT: ?Normocephalic, atraumatic. ?Moist mucous membranes Eyes: ?PERRL, EOMI Neck: ?Supple, nontender Chest: ?No chest wall tenderness Respiratory: ?Lungs clear to auscultation, no increased work of breathing, occasional cough Cardio: ?Regular rate and rhythm, no murmur, 2+ radial and DP pulses symmetrically GI: ?Soft, nondistended, there is tenderness to palpation limited to a hernia that is appreciated just superior to the umbilicus. Although it does move with palpation, it is difficult to determine if it completely reduces secondary to the patient's habitus. There is no overlying skin changes. Back: ?Normal range of motion, nontender Skin: ?No rash, no lesions Neuro: ?Alert and oriented to person, place and time, moves all 4 extremities, no focal deficits Extremities: ?No swelling or tenderness, full range of motion Psych: ?Calm, alert and cooperative, appropriate behavior Medical Decision Making Medical Decision Making MDM Narrative: Patient presenting with a periumbilical hernia that is tender to palpation. Although there are no mario signs of incarceration or strangulation, it is tender to palpation and difficult to completely assess on exam due to the patient's habitus. Therefore, we will administer IV and p.o. contrast for further evaluation to determine if there is a need for urgent or elective surgical management. The patient agrees with plan and does not requiring any analgesics at this time. Patient will be signed out to the next provider pending CT imaging results, llab results and final disposition. 1DrAdam patient's CT scan reviewed 2.2 cm fat containing incarcerated umbilical hernia patient is feeling much better at this time case discussed surgeon Dr. Torres advised to follow up as outpatient pain management not indicated for any surgery Admission/Observation Consideration of admission/observation: Escalation of care including admission/observation considered Lab Data [facility] Lab Attestation statement: I reviewed the patient's lab results. 03/30/25 20:44 03/30/25 20:44 Labs: Lab Results 03/30/25 Range/Units 20:44 WBC 8.3 (4.8-10.8) X10*3/uL RBC 4.42 (4.20-5.50) X10*6/uL Hgb 12.4 (12.0-16.0) g/dl Hct 38.3 (37.0-47.0) % MCV 86.7 (80.0-98.0) fL MCH 28.1 (27.0-33.0) pg MCHC 32.4 (31.0-35.0) g/dl RDW 14.2 (11.0-16.0) % Plt Count 246 (160-400) X10*3/uL MPV 9.4 (9.4-12.3) fL Immature Gran % (Auto) 0.1 (0.0-0.4) % Neut % (Auto) 29.8 L (45-73) % Lymph % (Auto) 51.7 H (20-40) % [place] % (Auto) 10.5 (2-11) % Eos % (Auto) 7.5 H (0-4) % Baso % (Auto) 0.4 (0-2) % Lymph # (Auto) 4.3 (1.2-4.9) X10*3/uL [place] # (Auto) 0.9 (0.1-1.2) X10*3/uL Eos # (Auto) 0.6 H (0.0-0.4) X10*3/uL Baso # (Auto) 0.0 (0.0-0.2) X10*3/uL Abs Immat Gran (auto) 0.01 (0.00-0.03) X10*3/uL Absolute Neuts (auto) 2.5 (2.0-8.3) x10*3/uL Absolute Nucleated RBC 0.000 (0.0-0.012) X10*3/uL Nucleated RBC % (auto) 0.0 (0.0-0.2) /100WBC Sodium 142 (135-145) mmol/L Potassium 3.7 (3.3-5.1) mmol/L Chloride 108 (96-108) mmol/L Carbon Dioxide 24 (22-29) mmol/L Anion Gap 14 (12-20) BUN 8 L (9-16) mg/dL Creatinine 0.73 (0.5-1.4) mg/dL Estim Creat Clear Calc 134.2 Estimated GFR > 60 Random Glucose 107 (60-115) mg/dL Calcium 9.7 (8.4-10.2) mg/dL Beta HCG, Quant < 2 mIU/mL Radiology Impression Discussion of test interpretation with radiology: I have reviewed the radiologist's reading. Radiologist Impression: IMPRESSION: A 2.2 cm fat only containing supraumbilical hernia. Moderate inflammatory changes of the herniated fat concerning for incarcerated/ strangulation of the herniated fat. Otherwise, no acute disease within the abdomen or pelvis. Left adnexal 2.3 cm cyst. This document has been electronically signed by: Genna Obando MD on 03/30/2025 23:08:56 Medications Administered Discontinued Medications Generic Name Dose Route Start Last Admin Trade Name Freq PRN Reason Stop Dose Admin Acetaminophen 975 mg 03/30/25 21:10 03/30/25 21:17 Acetaminophen 325 Mg Tablet PO 03/30/25 21:11 650 mg ONCE ONE Administration Diatrizoate Meglum/Diatrizoate Sod 30 ml 03/30/25 22:31 03/30/25 22:32 Diatrizoate Meglumine, Sodium 30 Ml Solution PO 03/30/25 22:32 30 ml ONCE ONE Administration Iohexol 85 ml 03/30/25 22:34 03/30/25 22:34 Iohexol 350 Mg/Ml 100 Ml Infus..Btl IV 03/30/25 22:35 85 ml ONCE ONE Administration Discharge Plan Discharge Clinical Impression: Periumbilical hernia Patient Disposition: Home, Self-Care Instructions: Umbilical Hernia (ED) Additional Instructions: You have small umbilical hernia which contains fat at this time treatment is pain management take ibuprofen 1 tablet every 6 hours as needed Follow up with surgeon for further management Prescriptions: New ibuprofen 600 mg tablet 600 mg PO Q6H PRN (Reason: fever or pain) Qty: 30 0RF No Action albuterol sulfate 90 mcg/actuation HFA aerosol inhaler 2 puff inhalation Q4-6H PRN (Reason: bronchospasm) 7 Days Qty: 6.7 0RF medroxyprogesterone [Provera] 10 mg tablet 10 mg PO daily 5 Days Qty: 30 1RF Rx Instructions: repeat if no menses monthly as directed Referrals: Sanjeev Torres MD [Physician] - 1 day Interventions: ED Discharge Assessment Last Done: 03/31/25 00:10 Discharge Date/Time: 03/31/25 00:10 Print Language: Upper Sorbian
[2025-03-30 20:47] LABS: MANUAL DIFF FLAG NO
[2025-03-30 20:49] LABS: Basophils Percent Auto 0.4 % (0-2); Eosinophils Absolute Auto 0.6 X10*3/uL (0.0-0.4); Eosinophils Percent Auto 7.5 % (0-4); Hematocrit 38.3 % (37.0-47.0); Hemoglobin 12.4 g/dl (12.0-16.0); Imm Gran Abs Auto 0.01 X10*3/uL (0.00-0.03); Imm Gran Pct Auto 0.1 % (0.0-0.4); Lymphocytes Absolute Auto 4.3 X10*3/uL (1.2-4.9); Lymphocytes Percent Auto 51.7 % (20-40); Mean Corpuscular HGB Conc 32.4 g/dl (31.0-35.0); Mean Corpuscular Hemoglobin 28.1 pg (27.0-33.0); Mean Corpuscular Volume 86.7 fL (80.0-98.0); Mean Platelet Volume 9.4 fL (9.4-12.3); Monocytes Absolute Auto 0.9 X10*3/uL (0.1-1.2); Monocytes Percent Auto 10.5 % (2-11); Neutrophils Absolute Auto 2.5 x10*3/uL (2.0-8.3); Neutrophils Percent Auto 29.8 % (45-73); Platelet Count 246 X10*3/uL (160-400); Red Blood Count 4.42 X10*6/uL (4.20-5.50); Red Cell Distribution Width 14.2 % (11.0-16.0); White Blood Count 8.3 X10*3/uL (4.8-10.8)
[2025-03-30 21:12] LABS: Anion Gap 14 (12-20); Blood Urea Nitrogen 8 mg/dL (9-16); Calcium 9.7 mg/dL (8.4-10.2); Carbon Dioxide 24 mmol/L (22-29); Chloride 108 mmol/L (96-108); Creatinine Clr Calc Pharmacy 134.2; Estimated Glomerular Filt Rate > 60; Glucose Random 107 mg/dL (60-115); Potassium 3.7 mmol/L (3.3-5.1); Sodium 142 mmol/L (135-145)
[2025-03-30] MEDS: Acetaminophen 325 MG TABLET 975 MG PO (21:17)
[2025-03-30 21:32] LABS: HCG Quantitative < 2 mIU/mL
[2025-03-30 21:47] VITALS: BP 116/65; PULSE 79; RESP 18; O2SAT 97
[2025-03-30] MEDS: Diatrizoate Meglumine, Sodium 30 ML SOLUTION PO (22:32)
[2025-03-30] MEDS: iohexoL 350 MG/ML 100 ML INFUS..BTL 85 ML IV (22:34)
[2025-03-31 00:10] VITALS: BP 118/73; PULSE 80; RESP 20; TEMP 36.4; O2SAT 98
== END 2025-03-31 00:10 | disposition home or self-care (01) ==
PROVIDERS: Emergency Medicine; Emergency Provider Internal Medicine
DX: K42.9 Umbilical hernia without obstruction or gangrene (principal); R05.9 Cough, unspecified; R06.2 Wheezing
CPT/HCPCS: 36415; 74177; 80048; 84702; 85025; 99284; Q9967

== ENCOUNTER → 2025-03-30 20:18 | Outpatient (BNV) | payer OTHER, SELFPAY | PROVIDERS: Emergency Provider Internal Medicine; Visit Provider Student in an Organized Health Care Education/Training Program | DX: K42.0 Umbilical hernia with obstruction, without gangrene (principal) | CPT/HCPCS: 74177 ==

== ENCOUNTER 2025-06-25 11:37 | Outpatient (AMB) | payer OTHER, SELFPAY ==
--- NOTE | 2025-06-25 11:40 | MHC.OFFVIS ---
Vital Signs 06/25/25 11:42 Height 5 ft 5 in Weight 256 lb BMI 42.6 BP 118/65 Blood Pressure Location Rt brachial Position Sitting Pulse 66 Intake Visit Reasons: hernia Intake Note: Patient seen at [facility] ED and here today for evaluation of periumbilical hernia. Patient c/o: on and off pain. Bothersome when coughing. Imaging: Abdomen pelvis US: 03-30-2025 Automation Manager Required: No Accompanied by: Self / Same As Patient Allergies No Known Allergies (No Known Allergies*) Allergy (Verified 06/25/25 11:43) Medication List - Last Reconciled 06/25/25 by Sanjeev Torres MD albuterol sulfate 90 mcg/actuation 2 puffs inhalation Q4-6H PRN 7 days ibuprofen 600 mg PO Q6H PRN HPI HPI hernia: Details: [age] year old female referred for a supraumbilical hernia. She went to the urgent care center in the ER last 03/30/2025 because of lump above her umbilicus with pain and tenderness. She had been coughing at that time. She had a CAT scan showing a fat containing supraumbilical hernia about 2.5 cm, with a defect of about 1.5 cm She was therefore referred to me She says that the hernia does not really bother except when she coughs or does physical exertion. She denies GI complaints She is morbidly obese. [facility] Medical History (Updated 06/25/25 @ 13:14 by Sanjeev Torres MD) Supraumbilical hernia Amenorrhea Irregular menses Surgical History History of cholecystectomy History of ear surgery Family History Mother Substance use disorder Stomach cancer Father Substance use disorder Social History Housing: Apartment Alcohol intake: current Alcohol intake frequency: a few times a month Patient Tobacco Use Status: Current someday Tobacco user e-Cigarette/Vaping Use: Currently Using Second Hand Smoke Exposure: No Substance Use Type: Marijuana service: No Current occupational status: employed Sexual orientation: Straight/Heterosexual Gender identity: Female Female Reproductive History Menstrual Age of Menarche: 13 Review of Systems Const Denies chills and Denies fever(s) Card Denies chest pain, Denies dyspnea and Denies dyspnea on exertion Resp Details: Has occasional asthma attacks Denies cough, Denies dyspnea and Denies dyspnea on exertion GI Denies hematochezia and Denies change in bowel habits Denies hematuria Musc Denies back pain and Denies limited range of motion Neuro Denies focal weakness and Denies convulsions Psych Denies depression and Denies mood swings Physical Exam Vital Signs: Last Vital Signs Pulse 66 06/25/25 11:42 BP 118/65 06/25/25 11:42 BMI result Body Mass Index 42.6 Const Other: Obese General: comfortable and no acute distress Orientation/consciousness: patient oriented x3 Neck Neck: Yes no lymphadenopathy Resp Auscultation: clear to auscultation bilaterally Cardio Rhythm: regular rhythm GI Other: Palpable supraumbilical hernia, vague, nonreducible, obvious with Valsalva, nontender, no skin changes Palpation (GI): Soft to palpation, nontender and no guarding Neuro General: patient oriented x3 Assessment & Plan Assessment & Plan (1) Supraumbilical hernia: Code(s): K43.9 - Ventral hernia without obstruction or gangrene Category: Medical Plan: She has a supraumbilical hernia, fat containing, nonreducible, about 2.5 cm as described above. She says that she has symptoms whenever she coughs or does physical exertion I explained the technique of repair of the supraumbilical hernia with possible mesh. I reviewed the risks including but not limited to bleeding, infections, recurrence, injury to bowel, postop pain, as well as the benefits and alternatives. I explained to her what to expect postoperatively She says she understands and wants to proceed. She will be scheduled for repair of the supraumbilical hernia with possible mesh placement. I also counseled her on the benefits of weight loss. Coding Level of Care Code New Pt Level 3 (48805) Diagnoses Supraumbilical hernia K43.9
[2025-06-25 11:42] VITALS: BP 118/65; PULSE 66; BMI 42.6
--- OUTSIDE RECORDS SUMMARY | 2025-06-25 12:36 | XMS_ITS | Clinical Summary ---
Author Organization [facility] Address [address] [place] [address] [place] [phone] Phone Care Team Providers Care Safety Risk Lead Name Role Phone Unknown, Unknown Primary Care Provider Toshia lable Allergies No known active allergies Medications No known medications Social History Tobacco Use Types Packs/Day Years Used Date Smoking Tobacco: Never Alcohol Use Standard Drinks/Week Comments Yes 0 (1 standard drink = 0.6 oz pur e alcohol) occassional Education Answer Date Recorded Are you interested in more education? Not on mayra e 02/24/2023 Are you concerned about learning? Not on file 02/24/2023 No 02/24/2023 No 02/24/2023 Comments No Sex and Gender Information Value Date Recorded Sex Assigned at Female 03/18/2018 3:15 AM EDT Legal Sex Female 2:57 AM EDT Gender Identity Female 03/18/2018 3:15 AM EDT Sexual Orientation Not on file Last Filed Vital Signs Vital Sign Reading Time Taken Comments Blood Pressure 115/73 03/18/2018 9:13 AM EDT Pulse 72 03/18/2018 9:13 AM EDT Temperature 36.3 C (97.4 F) 03/18/2018 9:13 AM EDT Respiratory Rate 16 03/18/2018 9:13 AM EDT Oxygen Saturation 97% 03/18/2018 9:13 AM EDT Inhaled Oxygen Concentration - - Weight 77.1 kg (170 lb) 03/18/2018 3:16 AM EDT Height 167.6 cm (5' 6 ) 03/18/2018 3:16 AM EDT Body Mass Index 27.44 03/18/2018 3:16 AM EDT Plan of Treatment Not on file Medical Devices Not on file Insurance GENERIC SPECIAL BILLING GENERIC SPECIAL BILLING GENERIC SPECIAL BILLING GENERIC SPECIAL BILLING GENERIC SPECIAL BILLING GENERIC SPECIAL BILLING GENERIC SPECIAL BILLING GENERIC SPECIAL BILLING GENERIC SPECIAL BILLING Care Teams Safety Risk Lead Relationship Specialty Start Date End Date Unknown, Unknown, PCP - General 03/18/18 Additional Source Comments The information contained in this document represents components of the legal health record. It is not the complete legal health record.[facility]
== END 2025-06-25 11:48 | disposition home or self-care (01) ==
LOC: HO.HGS 11:37
PROVIDERS: Visit Provider Surgery
DX: K43.9 Ventral hernia without obstruction or gangrene (principal)
CPT/HCPCS: 99203

== ENCOUNTER → 2025-06-25 11:37 | Outpatient (BNVA) | payer OTHER, SELFPAY | PROVIDERS: Visit Provider Surgery | DX: K43.9 Ventral hernia without obstruction or gangrene (principal) | CPT/HCPCS: 99202 ==

== ENCOUNTER 2025-07-30 10:01 | Outpatient (AMB) | payer OTHER, SELFPAY ==
--- NOTE | 2025-07-30 10:03 | MHC.OFFVIS ---
Vital Signs 07/30/25 10:05 Height 5 ft 5 in Weight 237 lb BMI 39.4 BP 114/70 Intake Visit Reasons: 6 month med check Splicing Machine Operator: Splicing Machine Operator Present Allergies No Known Allergies (No Known Allergies*) Allergy (Verified 07/30/25 10:04) Is last menstrual period known: Yes Last menstrual period: 07/26/25 HPI Comments Details: Patient is here today for a follow up on her progesterone medication. Overall doing well once in awhile forgets to take her medication to cycle, has her withdrawal bleed today. Occasionally sexually active with partner. She denies any contraindications to control such as: migraines with aura, history of DVT or pulmonary emboli, high blood pressure, liver disease, thrombolic disorders, Lupus, +NADIA, breast cancer, or smoking. [facility] Medical History Supraumbilical hernia Amenorrhea Irregular menses Surgical History History of cholecystectomy History of ear surgery Family History Mother Substance use disorder Stomach cancer Father Substance use disorder Social History Housing: Apartment Alcohol intake: current Alcohol intake frequency: a few times a month Patient Tobacco Use Status: Current someday Tobacco user e-Cigarette/Vaping Use: Currently Using Second Hand Smoke Exposure: No Substance Use Type: Marijuana service: No Current occupational status: employed Sexual orientation: Straight/Heterosexual Gender identity: Female Female Reproductive History Menstrual Age of Menarche: 13 Date of last menstrual period: 07/26/25 Review of Systems Const All systems reviewed & are unremarkable except as noted in HPI and below Endo Reports no additional complaints Physical Exam Vital Signs: Last Vital Signs BP 114/70 07/30/25 10:05 BMI result Body Mass Index 39.4 Const General: cooperative, healthy appearing and no acute distress Psych Appearance: well kempt Attitude: cooperative Thought process: Normal thought process present Assessment & Plan Assessment & Plan (1) Encounter for medication refill: Code(s): Z76.0 - Encounter for issue of repeat prescription Category: Medical Plan: Change from medroxyprogesterone to Prometrium, Rx sent to pharmacy with refills for 6 months. If suspect any symptoms to do a home test and report to the office if there is any concerns. The patient expressed understanding and agreement with the plan of care. All of her questions and concerns were addressed to the best of my ability. Annual to be exam scheduled for January of 2026. (2) History of amenorrhea: Code(s): Z87.42 - Personal history of other diseases of the female genital tract Plan Continue with the medication. Report any unscheduled bleeding or any other medication concerns. The patient expressed understanding and agreement with the plan of care. All of her questions and concerns were addressed to the best of my ability. This note is constructed using voice recognition software. While every effort has been made to ensure accuracy, web marketing intern errors may have been included. Medications: New progesterone micronized (Prometrium) take 1st 12 days of each calendar month 200 mg PO .monthly 60 caps 0RF 12 days Coding Level of Care Code Est Pt Level 3 (25705) Diagnoses Encounter for medication refill Z76.0 History of amenorrhea Z87.42
[2025-07-30 10:05] VITALS: BP 114/70; BMI 39.4
--- OUTSIDE RECORDS SUMMARY | 2025-07-30 11:11 | XMS_ITS | Clinical Summary ---
Author Organization [facility] Address [address] [place] [address] [place] [phone] Phone Care Team Providers Care Culinary Instructor Name Role Phone Unknown, Unknown Primary Care [...] SPECIAL BILLING GENERIC SPECIAL BILLING Care Teams Culinary Instructor Relationship Specialty Start Date End Date Unknown, Unknown, PCP - General 03/18/18 Additional Source Comments The information contained in this document represents components of the legal health record. It is not the complete legal health record.[facility]
== END 2025-07-30 11:25 | disposition home or self-care (01) ==
LOC: HO.HWS 10:01
PROVIDERS: Visit Provider Advanced Practice Midwife
DX: Z76.0 Encounter for issue of repeat prescription (principal); Z87.42 Personal history of other diseases of the female genital tract
CPT/HCPCS: 99213

== ENCOUNTER → 2025-07-30 10:01 | Outpatient (BNVA) | payer OTHER, SELFPAY | PROVIDERS: Visit Provider Advanced Practice Midwife | DX: Z76.0 Encounter for issue of repeat prescription (principal); Z87.42 Personal history of other diseases of the female genital tract | CPT/HCPCS: 99212 ==

== ENCOUNTER 2025-08-01 07:04 | Day surgery (SDC) | payer OTHER, SELFPAY ==
--- OUTSIDE RECORDS SUMMARY | 2025-07-08 16:06 | XMS_ITS | Clinical Summary ---
Author Organization [facility] Address [address] [place] [address] [place] [phone] Phone Care Team Providers Care Gamemaster Name Role Phone Unknown, Unknown Primary Care [...] SPECIAL BILLING GENERIC SPECIAL BILLING Care Teams Gamemaster Relationship Specialty Start Date End Date Unknown, Unknown, PCP - General 03/18/18 Additional Source Comments The information contained in this document represents components of the legal health record. It is not the complete legal health record.[facility]
[2025-07-30 10:54] VITALS: BMI 42.6
--- NOTE | 2025-07-30 14:29 | HO.ANESPROP2 ---
Documented by User: Yaneli Dunn NP 07/30/25 14:30 HPI - Anesthesia Eval Consult details Narrative: 29yo F for Repair Hernia Supraumbilical Nonreducible with possible mesh PMFSH Active Problems Active Problems: All Active Problems Encounter for medication refill (Acute) Supraumbilical hernia (Acute) Encounter for well woman exam with routine gynecological exam (Acute) Irregular menses (Acute) Amenorrhea (Acute) Screen for STD (sexually transmitted disease) (Acute) Otitis media, right (Acute) Sinusitis (Acute) Chest congestion (Acute) Cough (Acute) Flu-like symptoms (Acute) control counseling (Acute) Fracture of distal end of right radius with routine healing (Acute) Distal radius fracture, right (Acute) Allergic rhinitis (Acute) Past Medical History Medical History (Updated 08/01/25 @ 07:15 by Mary Henning RN) Deafness Supraumbilical hernia Amenorrhea Irregular menses Family History Family History Mother Substance use disorder Stomach cancer Father Substance use disorder Surgical History Surgical History History of cholecystectomy History of ear surgery Social History Social History Housing: Apartment Alcohol intake: current Alcohol intake frequency: holidays/special occasions only Patient Tobacco Use Status: Current someday Tobacco user Tobacco use type: Cigarette e-Cigarette/Vaping Use: Currently Using Second Hand Smoke Exposure: No Use of substances other than those prescribed or required for medical reasons: No Substance Use Type: Marijuana Are you DNR?: No Advance Directives: No Advance Directives Information Provided: Yes service: No Current occupational status: employed Sexual orientation: Straight/Heterosexual Gender identity: Female Meds Allergies Allergy/AdvReac Type Severity Reaction Status Date / Time No Known Allergies (No Known Allergy Verified 08/01/25 07:15 Allergies*) Exam Height,Weight and Vital Signs: Height 5 ft 5 in Weight 116.12 kg Assessment and Plan Assessment Anesthesia Assessment: Chart Reviewed Documented by User: Sheri Jean MD 08/01/25 08:02 PMF Past Medical History Medical History (Updated 08/01/25 @ 07:15 by Mary Henning RN) Deafness Supraumbilical hernia Amenorrhea Irregular menses Family History Family History Mother Substance use disorder Stomach cancer Father Substance use disorder Family history of problems with anesthesia: No Surgical History Surgical History History of cholecystectomy History of ear surgery History of Problems with Anesthesia: No Social History Social History Housing: Apartment Alcohol intake: current Alcohol intake frequency: holidays/special occasions only Patient Tobacco Use Status: Current someday Tobacco user Tobacco use type: Cigarette e-Cigarette/Vaping Use: Currently Using Second Hand Smoke Exposure: No Use of substances other than those prescribed or required for medical reasons: No Substance Use Type: Marijuana Are you DNR?: No Advance Directives: No Advance Directives Information Provided: Yes service: No Current occupational status: employed Sexual orientation: Straight/Heterosexual Gender identity: Female Meds Allergies Allergy/AdvReac Type Severity Reaction Status Date / Time No Known Allergies (No Known Allergy Verified 08/01/25 07:15 Allergies*) Exam Airway Mallampati Class: III TM Dist: >3cm Neck ROM: Full Heart: rrr Lungs: cta Assessment and Plan Assessment Anesthesia Assessment: Anesthesia Plan Discussed Final Anesthetic Review Family History of Problems with Anesthesia: No History of Problems with Anesthesia: No NPO: Yes ASA Class: II Final Preanesthetic Review: No Changes in Pt Med Stat, Meds/Allgs Chart Reviewed and Consent Obtained/Reviewed Patient Risk: Intermediate Procedure Risk: Low Anesthetic Plan Anesthetic Plan: GA Disposition: Standard PACU
[2025-08-01] VITALS (10 sets, daily range): BP systolic 103–130; BP diastolic 53–83; PULSE 68–91; RESP 15–16; TEMP 36.2–36.7; O2SAT 96–98; BMI 40.0
[2025-08-01 07:24] LABS: UPreg QC Valid YES
[2025-08-01] MEDS: Lactated Ringers 1,000 ML 100 ML IVCONT (07:32)
--- NOTE | 2025-08-01 08:02 | MHC.SHP ---
Pre-Procedural Eval Section A - 24 Hr Update-Section A only Date of Service: 08/01/25 Section B - Complete if H&P > 30 days Chief Complaint: Ventral hernia without obstruction or gangrene Details of Present Illness: For repair of supraumbilical hernia today Relevant Social History: None Present Medications: see Short Stay Collaborative assessment Medical History: Significant History (Morbid obesity,) Allergies: Allergies Allergy/AdvReac Type Severity Reaction Status Date / Time No Known Allergies (No Known Allergy Verified 08/01/25 07:15 Allergies*) Review of Systems Sugical H&P ROS: Negative: Constitution, Cardiovascular and Respiratory Exam Surgical H&P Exam: Normal: Heart and Normal: Lungs and Significant Findings: Abdomen (Supraumbilical hernia, palpable with Valsalva) Plan Diagnosis/Plan: Unchanged I have reviewed the history and physical and performed a pertinent physical examination on my patient. No changes have occurred unless specified. Time Spent With Patient Time: Total time managing care of this patient today ____ minutes.
--- NOTE | 2025-08-01 09:15 | P.OP_ITS ---
Operative Note Operative Note Date of Service: 08/01/25 Narrative: Preop diagnosis: Chronically incarcerated supraumbilical hernia Postop diagnosis: Chronically incarcerated supraumbilical hernia x2 Procedure: Repair of 2 supraumbilical hernias with small Phasix mesh x2 Surgeon: Sanjeev Torres MD biology research assistant: ROSY Melo The patient is a 29 year old female with a chronically incarcerated supraumbilical hernia. She understood the technique of the planned procedure as well as the risks, benefits and alternatives. She was brought to the operating room and placed supine under general anesthesia via endotracheal tube. The abdomen was prepped and draped in the usual sterile fashion. A surgical time-out was done. The patient received cefazolin 2 g IV preoperatively I infiltrated the planned line of incision with lidocaine 1%. I made a short supraumbilical longitudinal incision on the midline with a blade 15. This was carried down with electrocautery through the full-thickness of the skin and thick subcutaneous fat until was able to visualize hernia contents. I sharply dissected the hernia contents off of the rest of the subcutaneous layer using Metzenbaum scissors as well as electrocautery. I proceeded with this dissection all the way down to the fascia. I define the fascial defects. By doing so was able to visualize 2 fascial defects. One was immediately above the umbilicus, about less than 1 cm. The 2nd 1 was about 1.5 cm, also more superior in the supraumbilical area I gently dissected both hernia contents off of the fascial defects until was able to reduce this completely. I cleared margins. There was no bowel underneath the fascial defects I positioned 1 small Phasix hernia mesh under the more superior supraumbilical hernia. This has flattened underneath the fascia. I secured the Prolene straps of the mesh to both sides of the fascial defect with Prolene 2 sutures. I trimmed the Prolene straps flush on the fascial level. I then closed the fascial defect with a [id number] Maxon 1 stitch. I applied another small-sized Phasix mesh on the more inferior and smaller supra umbilical hernia. This was flattened as well. The fascial layer. There was note of a little bit of overlap between these 2 Phasix measures. I secured the Prolene straps of the 2nd mesh with the fascial edge on both sides with Prolene 2 sutures. The Prolene straps were then trimmed . I closed the fascial defect over the mesh with a [id number] Maxon 1 stitch. I then reapposed the thick subcutaneous layer with Polysorb 3-0 simple interrupted sutures. Skin closure was achieved with Polysorb 4-0 subcuticular running stitch. The area was infiltrated with Marcaine 0.5% for postop analgesia. Dressings were applied. The procedure was completed The patient tolerated procedure well. There were no immediate complications initial and final counts of sponges and instruments were correct. Estimated blood loss was less than 10 cc. The patient was extubated without difficulty and transferred to the recovery room with stable vital signs.
== END 2025-08-01 11:47 | disposition home or self-care (01) ==
PROVIDERS: Nurse Practitioner; Visit Provider Surgery
PROC: (CPT 49592; principal; 2025-08-01 08:20)
DX: K43.6 Other and unspecified ventral hernia with obstruction, without gangrene (principal)
CPT/HCPCS: 49592; 81025; C1781; J0330; J0690; J1171; J2003; J2405; J2704; J2795; J3010

== ENCOUNTER → 2025-08-01 07:04 | Outpatient (BNV) | payer OTHER, SELFPAY | PROVIDERS: Visit Provider Surgery | DX: K40.90 Unilateral inguinal hernia, without obstruction or gangrene, not specified as recurrent (principal) | CPT/HCPCS: 49505 ==

== ENCOUNTER 2025-08-14 13:45 | Outpatient (AMB) | payer OTHER, SELFPAY ==
--- NOTE | 2025-08-14 13:46 | A.OFFVIS_ITS ---
Vital Signs 08/14/25 13:54 Height 5 ft 6 in Weight 239 lb 4 oz BMI 38.6 BP 123/60 Blood Pressure Location Rt brachial Position Sitting Pulse 80 Intake Visit Reasons: s/p supraumbilical hernia w/poss. mesh Intake Note: This patient presents for post-op assessment status post supraumbilical hernia repair. Pt c/o : reports no complaints pertaining to surgery. Appliance Fixer Required: No Accompanied by: Self / Same As Patient Allergies No Known Allergies (No Known Allergies*) Allergy (Verified 08/14/25 13:56) HPI HPI s/p supraumbilical hernia w/poss. mesh: Details: She underwent repair of supraumbilical hernias last 08/01/2025. She tolerated procedure well. He currently denies significant complaints. [facility] Medical History Deafness Supraumbilical hernia Amenorrhea Irregular menses Surgical History History of hernia repair (~08/01/25) History of cholecystectomy History of ear surgery Family History Mother Substance use disorder Stomach cancer Father Substance use disorder Social History Housing: Apartment Alcohol intake: current Alcohol intake frequency: holidays/special occasions only Patient Tobacco Use Status: Current someday Tobacco user Tobacco use type: Cigarette e-Cigarette/Vaping Use: Currently Using Second Hand Smoke Exposure: No Substance Use Type: Marijuana service: No Current occupational status: employed Sexual orientation: Straight/Heterosexual Gender identity: Female Female Reproductive History Menstrual Age of Menarche: 13 Review of Systems Const Denies chills and Denies fever(s) Card Denies chest pain at rest GI Denies vomiting Physical Exam Vital Signs: Last Vital Signs Pulse 80 08/14/25 13:54 BP 123/60 08/14/25 13:54 BMI result Body Mass Index 38.6 Const Other: Obese General: comfortable and no acute distress Resp Effort & Inspection: normal respiratory effort GI Other: Hernia repair site on the area above the umbilicus was well healed, not infected, repair intact Palpation (GI): Soft to palpation, not firm, nontender and no guarding Assessment & Plan Assessment & Plan (1) Supraumbilical hernia: Code(s): K43.9 - Ventral hernia without obstruction or gangrene Category: Medical Plan: Status post repair with mesh. She is doing very well. The repair site is well healed. The repair is intact. I advised her to avoid lifting anything more than 20 lb for at least 2 more weeks. She can otherwise follow up on a p.r.n. basis Coding Level of Care Code New Pt Level 3 (21595) Global (86120) Diagnoses Supraumbilical hernia K43.9
[2025-08-14 13:54] VITALS: BP 123/60; PULSE 80; BMI 38.6
--- OUTSIDE RECORDS SUMMARY | 2025-08-14 17:31 | XMS_ITS | Clinical Summary ---
Author Organization [facility] Address [address] [place] [address] [place] [phone] Phone Care Team Providers Care Collar Folder Operator Name Role Phone Unknown, Unknown Primary Care [...] SPECIAL BILLING GENERIC SPECIAL BILLING Care Teams Collar Folder Operator Relationship Specialty Start Date End Date Unknown, Unknown, PCP - General 03/18/18 Additional Source Comments The information contained in this document represents components of the legal health record. It is not the complete legal health record.[facility]
== END 2025-08-14 14:06 | disposition home or self-care (01) ==
LOC: HO.HGS 13:46
PROVIDERS: Visit Provider Surgery
DX: K43.9 Ventral hernia without obstruction or gangrene (principal)
CPT/HCPCS: 99024

== ENCOUNTER → 2025-08-14 13:45 | Outpatient (BNVA) | payer OTHER, SELFPAY | PROVIDERS: Visit Provider Surgery | DX: K43.9 Ventral hernia without obstruction or gangrene (principal); Z98.890 Other specified postprocedural states | CPT/HCPCS: 99212 ==

== ENCOUNTER 2025-09-05 13:20 | Outpatient (AMB) | payer OTHER, SELFPAY ==
[2025-09-05 13:29] VITALS: BP 110/80; PULSE 76; TEMP 36.2; O2SAT 97; BMI 37.5
--- NOTE | 2025-09-05 13:29 | MHC.PC.OV ---
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 Allergies No Known Allergies (No Known Allergies*) Allergy (Verified 09/05/25 13:42) Medication List - Last Reconciled 09/05/25 by Rohini Diaz PA-C albuterol sulfate 90 mcg/actuation 2 puffs inhalation Q4-6H PRN 7 days docusate sodium (Colace) 100 mg PO BID ibuprofen 600 mg PO Q6H PRN ibuprofen 600 mg PO Q6H PRN progesterone micronized (Prometrium) 200 mg PO .monthly 12 days Tobacco use date assessed: 09/05/25 Dental Screening Dental Screen Date: 09/05/25 Did you have a dental visit in the last 12 months?: Yes Did you have a dental problem in the last 6 months where you did not have access to dental care?: No Was dental information given to patient?: Patient has dentist 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 Presenting as a new patient to establish care. The patient recently underwent a hernia repair with Dr. Torres and is recovering well, having resumed gym activities after being cleared for heavy lifting. She experienced transient constipation post-operatively, which has resolved. She reports shortness of breath and chest tightness without pain, exclusively during exercise, particularly with running. She was given an inhaler at an urgent care in [place] but has never been formally diagnosed with asthma. The patient expresses concerns about having ADHD due to significant difficulty concentrating, which affects her desire to return to school. She has a family history of alcoholism (mother, father, and sister) and is wary of addictive medications but is open to trying a non-stimulant option. The patient has a history of severe depression, which has resolved since she started working and keeping busy. She denies any current thoughts of self-harm. 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 [facility] Medical History Distal radius fracture, right Deafness Supraumbilical hernia Amenorrhea Irregular menses Surgical History History of hernia repair (~08/01/25) History of cholecystectomy History of ear surgery Family History Mother Substance use disorder Stomach cancer Father Substance use disorder Social History Housing: Apartment Alcohol intake: current Alcohol intake frequency: holidays/special occasions only Patient Tobacco Use Status: Current someday Tobacco user Tobacco use type: Cigarette (marijuana smoker ) e-Cigarette/Vaping Use: Currently Using Second Hand Smoke Exposure: No Substance Use Type: Marijuana service: No Current occupational status: employed Sexual orientation: Straight/Heterosexual Gender identity: Female Cognitive needs: No Hearing needs: No Vision needs: No Female Reproductive History Menstrual Age of Menarche: 13 control method: pills Total pregnancies: 0 Questionnaire PHQ-9 Over the last 2 weeks, how often have you been bothered by any of the following problems? 1. Little interest or pleasure in doing things: not at all 2. Feeling down, depressed, or hopeless: not at all 3. Trouble falling or staying asleep, or sleeping too much: not at all 4. Feeling tired or having little energy: not at all 5. Poor appetite or overeating: not at all 6. Feeling bad about yourself - or that you are a failure or have let yourself or your family down: not at all 7. Trouble concentrating on things, such as reading the newspaper or watching television: not at all 8. Moving or speaking so slowly that other people could have noticed. Or the opposite - being so fidgety or restless that you have been moving around a lot more than usual: not at all 9. Thoughts that you would be better off or of hurting yourself in some way: not at all Total score: 0 Depression Screening Interpretation: Negative Depression Screening Done: Yes Source: Developed by Drs. Willie Ackerman, Glo Faust, Colton Guardado and colleagues, with an educational laura from [employer]. Thrive Questionnaire Date Thrive assessed: 09/05/25 I am a: Patient What is your living situation today?: I have a steady place to live Within the past 12 months, did the food you bought not last and you didn't have the money to get more?: Never true Within the past 12 months, did you worry whether your food would run out before you got money to buy more?: Never true Do you have trouble paying for medicines?: No Do you have trouble getting transportation to medical appointments?: No Do you have trouble paying your heating and electricity bill?: No Do you have trouble taking care of your child, family member or friend?: No Do you have trouble with day-to-day activities such as bathing, preparing meals, shopping, managing finances, etc.?: No Are you currently unemployed and looking for a job?: No Are you interested in more education?: Yes Please select the resources that you would like help with: None Currently or been in a relationship where the following occur: No concerns reported THRIVE Score: 0 AUDIT C Alcohol Use Questionnaire (AUDIT-C) 1. How often do you have a drink containing alcohol?: Never 2. How many drinks containing alcohol do you have on a typical day when you are drinking?: 1 or 2 (none) 3. How often do you have six or more drinks on one occasion?: Never Total Score: 0 Score Reviewed/Action Taken: Yes MARIO-7 AMB Questionnaire MARIO-7 Date MARIO - 7 assessed: 09/05/25 Feeling nervous, anxious, or on edge: 1 = Several days Not being able to stop or control worryin = More than half the days Worrying too much about different things: 2 = More than half the days Trouble relaxin = Not at all Being so restless that it is hard to sit still: 0 = Not at all Becoming easily annoyed or irritable: 3 = Nearly every day Feeling afraid as if something awful might happen: 0 = Not at all Total MARIO-7 score (0-4 normal; 5-9 mild; 10-14 moderate; 15-21 severe): 8 Source: Developed by Drs. Willie Ackerman, Glo Faust, Colton Guardado and colleagues, with an educational laura from [employer]. Review of Systems Const Denies body aches, Denies chills, Denies fever(s), Denies headache(s) and Denies poor appetite Eyes Reports no additional complaints ENT Denies dizziness and Denies headache(s) Card Denies chest pain, Denies edema, Denies lightheadedness, Denies dyspnea and Reports dyspnea on exertion Resp Denies cough, Denies dyspnea and Reports dyspnea on exertion GI Denies abdominal pain, Denies constipation, Denies diarrhea, Denies nausea and Denies vomiting Reports no additional complaints Musc Reports no additional complaints and Denies abnormal gait Skin/Breast Reports system reviewed and no additional complaints, except as documented Neuro Denies abnormal gait, Denies dizziness and Denies headache(s) Psych Reports no additional complaints Physical exam (Primary Care) Vital Signs: Last Vital Signs Temp 97.1 F 09/05/25 13:29 Pulse 76 09/05/25 13:29 BP 110/80 09/05/25 13:29 Pulse Ox 97 09/05/25 13:29 Oxygen Delivery Method Room Air 09/05/25 13:29 BMI result Body Mass Index 37.5 Tobacco/Smoking Status: Tobacco use Status Tobacco use date assessed 09/05/25 09/05/25 13:38 Patient Tobacco Use Status Current someday Tobacco 09/05/25 13:38 Tobacco use type Cigarette (marijuana smoker 09/05/25 13:38 ) e-Cigarette/Vaping Use Currently Using 09/05/25 13:38 PHQ-9: PHQ-9 Score PHQ-9: Total score 0 09/05/25 13:42 Depression Screening Interpretation: Negative Thrive Assessment: Date of Thrive Assessment Date Thrive assessed 09/05/25 09/05/25 13:38 Currently or been in a relationship where the following occur: No concerns reported Const General: cooperative, healthy appearing, comfortable and no acute distress Orientation/consciousness: patient oriented x3 [facility] Head: Yes normocephalic Ears: hearing grossly normal bilaterally General nose exam: Normal external nose present Eyes General: appearance normal, both eyes and all related structures Conjunctivae: conjunctivae normal Neck Neck: Yes full ROM and Yes no lymphadenopathy Resp Effort & Inspection: normal respiratory effort Auscultation: clear to auscultation bilaterally, no crackles, no rales, no rhonchi and no wheezes Cardio Rate: regular rate Rhythm: regular rhythm Skin General skin exam: no rashes or lesions noted Neuro General: patient oriented x3 Gait exam (Neuro): Normal gait present Extrem General: Yes normal to inspection, Yes full ROM and No edema Psych Affect: normal affect Attitude: cooperative Insight: Good insight present (Psych) Judgement: Good judgement present (Psych) Coding Level of Care Code New Pt Level 4 (72935) Diagnoses Irregular menses N92.6 Exercise-induced shortness of breath R06.02 Difficulty concentrating R41.840 Obesity (BMI 30-39.9) E66.9 Assessment & Plan Assessment & Plan (1) Irregular menses: Code(s): N92.6 - Irregular menstruation, unspecified Category: Medical Plan: Continue to follo with [facility] gynecology. (2) Exercise-induced shortness of breath: Code(s): R06.02 - Shortness of breath Category: Medical Plan: The patient reports dyspnea and chest tightness with exercise, consistent with possible exercise-induced asthma. A pulmonary function test will be ordered to investigate for asthma. A prescription for an albuterol inhaler will be sent to the pharmacy. The patient was advised to use the inhaler before exercise to assess for improvement of symptoms. (3) Difficulty concentrating: Code(s): R41.840 - Attention and concentration deficit Category: Medical Plan: The patient exhibits concern for ADHD due to significant difficulty concentrating. Given her concerns about addiction and family history, we will initiate treatment with Strattera (atomoxetine) 40 mg daily, a non-stimulant medication. The patient was counseled that it may take 4-6 weeks to see the full effect and was advised to report any side effects. A referral will be placed for formal ADHD testing with an outpatient psychiatry clinic. (4) Obesity (BMI 30-39.9): Code(s): E66.9 - Obesity, unspecified Category: Medical Plan: Healthy diet and regular exercise is encouraged. Plan This note was constructed using voice recognition software. While every effort has been made to ensure accuracy and field mechanic/site lead, still areas may have been included sometimes these areas may affect the content or meeting of the given symptoms. Total time spent caring for the patient today was 30 minutes. This includes time spent before the visit reviewing the chart, time spent during the visit, and time spent after the visit and documentation. Patient was informed and verbally consented to the use of an ambient scribe for clinic note documentation during this visit. Orders: Orders PFT pulmonary function test Today J30.9 - Allergic rhinitis, unspecified, N92.6 - Irregular menstruation, unspecified, R06.02 - Shortness of breath Complete Blood Count Auto Diff Today N92.6 - Irregular menstruation, unspecified, Z13.0 - Encounter for screening for diseases of the blood and blood-forming organs and certain disorders involving the immune mechanism Hemoglobin A1c Today E11.65 - Type 2 diabetes mellitus with hyperglycemia, Z13.1 - Encounter for screening for diabetes mellitus TSH reflex Free T4 Today Z13.29 - Encounter for screening for other suspected endocrine disorder Vitamin B12 and Folate Today Z13.21 - Encounter for screening for nutritional disorder Comprehensive Met. Panel Today Z00.00 - Encounter for general adult medical examination without abnormal findings, Z13.1 - Encounter for screening for diabetes mellitus Vitamin D 25-OH Total Today Z13.21 - Encounter for screening for nutritional disorder Lipid Panel Today Z13.220 - Encounter for screening for lipoid disorders Referrals Psychiatry Outpatient Consultation Service R41.840 - Attention and concentration deficit Medications: New atomoxetine 40 mg PO DAILY 90 caps 0RF Refilled albuterol sulfate 90 mcg/actuation 2 puffs inhalation Q4-6H PRN 6.7 grams 0RF bronchospasm 7 days Discontinued ibuprofen Discontinued Reason: Patient no longer taking 600 mg PO Q6H PRN 30 tabs 0RF fever or pain ibuprofen Discontinued Reason: Patient no longer taking 600 mg PO Q6H PRN 30 tabs 0RF pain docusate sodium (Colace) Discontinued Reason: Patient no longer taking 100 mg PO BID 60 caps 0RF
--- OUTSIDE RECORDS SUMMARY | 2025-09-05 15:27 | XMS_ITS | Clinical Summary ---
Author Organization [facility] Address [address] [place] [address] [place] [phone] Phone Care Team Providers Care Line Up Examiner Name Role Phone Unknown, Unknown Primary Care [...] SPECIAL BILLING GENERIC SPECIAL BILLING Care Teams Line Up Examiner Relationship Specialty Start Date End Date Unknown, Unknown, PCP - General 03/18/18 Additional Source Comments The information contained in this document represents components of the legal health record. It is not the complete legal health record.[facility]
--- OUTSIDE RECORDS SUMMARY | 2025-09-05 15:28 | XMS_ITS | Data Portability ---
Author Organization [place] - [facility], [facility] Address [address] [place] [phone] Assessment Encounter Date Assessment Date Assessment LastModified by Organization Details LastModified Time 09/09/2010 09/09/2010 LD- likely LD but I believe that the testing done is not accurate - await new IEP testing ACNE - epiduo samples given insurance won't pay HEARING - to Greg for full eval ALLERGIES-trial Zyrte- if not better to school based therapist for testing EXHIBIT ELECTRICIAN- Dr. Blakely 3 year IEP eval at [facility] end of this month- to Devlopmental peds eval in [place] when available [facility] x 3 indicate no ADHD but + LD and emotional issues My impression is that testing on Alycia has been done (FSIQ-68) when she has been in midst of significant upheaval. She is now in a foster placement with the [facility] that is nurturing, and caring and safe. I think that it will be good to get new evaluation from the school and then [facility] in about 3-4 months again. I [...] started with mom and patient with Shani Zhang in a few weeks Intellectually, Alycia is able to surf the net and research her interests, she was able toread fluently from an internet passage that I picked out from [employer] without any trouble I doubt that her borderline IQ testing is accurate and the retesting is to take place with the [facility] psych soon I disc with mom that I will call DCF Shani Zhang and Jena Armando next week to disc [...] child with hx of LD 2009 010 [facility] ([facility]), [address] [place] [address] [address], [place], [address], 3 03:06:17 Procedures None recorded. Surgeries None recorded. Imaging None recorded. Medication Orders amoxicill in 400 mg/5 mL oral suspensio n 2009 010 [id number], [address] [place] [address], [id number], 3 03:06:38 Zyrtec 10 mg chewable tablet 2009 010 [facility] #[id number], [address], [place], [id number], 3 03:06:17 Patient TargetsNo targets recorded. Patient Instructions Encounter Date Encounter Id Patient Instructions Last Modified By Organization Details Last Modified Time 09/09/2010 [id number] hearing screening* CYNTHIA Not available 05/24/2013 03:06:17 Disc with Mrs. Harry that I would like to be involved in the school issues involving Alycia [id number] Not available 05/30/2011 02:09:26 09/20/2010 [id number] Rx: Claritin-D x 7 d d/c Zyrtec for now [id number] Not available 07/13/2011 02:02:01 10/29/2010 [id number] valsalva; observe; await ENT (hearing eval) ; NO Q TIPS [id number] Not available 05/30/2011 02:09:15 Reason for Referral please eval hearing in this child with hx of LD Referring Physician: Radha Pinon, Pediatric Medicine, Encounter Date: 09/09/2010 Results Created Date Observation Date Name Description Value Unit Range Abnormal Flag Note LastModifiedBy Organization Detail LastModifiedTime 09/09/20 10 09/09/2010 hearleslie rodriguez scree braden* Right Fail Not Available [facility] [address] [place] [address], [phone], 09/09/2010 17:11:29 09/09/20 10 09/09/2010 hearleslie rodriguez scree braden* Left Pass Not Available [facility] [address] [place] [address], [phone], 09/09/2010 17:11:29 Result Notes None recorded. Problems Name Problem SNOMED Code Status Onset Date Resolution Date Notes Provider Name and Address Organization Details Recorded Time Contusion 648108670 Completed 08/06/2010 Not Available [facility] 3 03:02:03 Adjustment disorder 47013415 Active Not Available [facility] 3 03:02:03 Allergic rhinitis 28541214 Active Not Available [facility] 3 03:02:03 Impacted cerumen 18719023 Completed 08/06/2010 Not Available [facility] 3 03:02:03 Sprain of ankle 67759901 Completed 08/06/2010 Not Available [facility] 3 03:02:03 Nonvenomou s insect bite of multiple sites 513640801 Completed 08/06/2010 Not Available [facility] 3 03:02:03 Single major depressive episode Active Not Available [facility] 3 03:02:03 Dysfunctio n of eustachian tube 77821874 Active Not Available [facility] 3 03:02:03 Non-suppur ative otitis media with eustachian tube disorder 743363774 Active Not Available [facility] 3 03:02:03 Speech and language developmen rufina delay due to hearing loss 515431678 Active Not Available [facility] 3 03:02:03 Otalgia 87206571 Active Not Available [facility] 3 03:02:03 Unilateral sensorineu ral hearing loss with unrestrict ed hearing on the contralate ral side Active Not Available [facility] 3 03:02:03 Constipati on 50070058 Active 2007 Not Available [facility] 3 03:02:03 Nervous system symptoms Active 2007 Not Available [facility] 3 03:02:03 Acne 46416988 Active 2007 Not Available [facility] 3 03:02:03 Developmen rufina academic disorder 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 Active 2007 Not Available [facility] 3 03:02:03 Abnormal weight loss 001831138 Active 2007 Not Available [facility] 3 03:02:03 Otitis externa 8259175 Completed 200708/06/2010 Not Available [facility] 3 03:02:03 Otalgia 21545096 Completed 200808/06/2010 Not Available [facility] 3 03:02:03 Non-suppur ative otitis media with eustachian tube disorder 882220720 Completed 200808/06/2010 Not Available [facility] 3 03:02:03 Notes:IN DCF custody has bee n in foster care Problem Notes None recorded. Procedures Surgical History Date Name Laterality Status Provider Name and Address Organization Details Recorded Time 0 Wax Removal with Curette Unilateral With or Without Irrigation completed Beau Hudson MA - [facility] 07/26/2010 13:43:51 Imaging Results None recorded. [...] propionate 50 mcg/actuat ion nasal spray,susp ension [place] 2 sprays every day by intranas al [...] Details Last Updated DateTime 11/05/2010 163.195 cm 29948.41391 g 25.4 kg/m2 [facility] 11/05/2010 16:33:24 Date Recorded Body height Body weight Body mass index (BMI) Systolic And Diastolic Provider Name and Address Organization Details Last Updated DateTime 09/09/2010 162.56 cm 84539.097 465 g 24.8 kg/m2 110/72 mm[Hg] [facility] 09/09/2010 16:36:59 Social History Question Answer Notes LastModified by Organizat ion Details LastModified Time Parent's Marital Status Unmarried NEW FOSTER PLACEMENT WITH THE [facility] [email or web address]_ [id number] Information not available 09/03/2011 Siblings Names And Birthdates Pearl, Renita, Dali,ajith, Evie [email or web address]_[email or web address]_ [id number] Information not available 09/03/2011 Parent's Name Dahlia Fabian Moved Out Of [facility] In 06/08 [email or web address]_PATCH_ [email or web address] Information not available 09/03/2011 Parent's Name Akhil [...] Recorded Time IPV 0 completed Not Available [facility] 09/03/2011 03:18:24 meningococcal ACWY, unspecified formulation 8 completed Not Available [facility] 09/03/2011 03:19:20 Hep B, unspecified formulation 7 completed Not Available [facility] 09/03/2011 03:18:24 IPV 0 completed Not Available [facility] 09/03/2011 03:18:24 Hep B, unspecified formulation 7 completed Not Available [facility] 09/03/2011 03:18:24 IPV 1 completed Not Available [facility] 09/03/2011 03:18:24 DTaP, unspecified formulation 7 completed Not Available [facility] 09/03/2011 03:18:24 MMR 0 completed Not Available [facility] 09/03/2011 03:18:24 Hib, unspecified formulation 0 completed Not Available [facility] 09/03/2011 03:18:24 DTaP, unspecified formulation 0 completed Not Available [facility] 09/03/2011 03:18:24 Hib, unspecified formulation 7 completed Not Available [facility] 09/03/2011 03:18:24 DTaP, unspecified formulation 0 completed Not Available [facility] 09/03/2011 03:18:24 Hep B, unspecified formulation 0 completed Not Available [facility] 09/03/2011 03:18:24 MMR 1 completed Not Available [facility] 09/03/2011 03:19:20 DTaP, unspecified formulation 1 completed Not Available [facility] 09/03/2011 03:18:24 IPV 7 completed Not Available [facility] 09/03/2011 03:18:24 Tdap 8 completed Not Available [facility] 09/03/2011 03:18:24 Influenza, split virus, trivalent, preservative 0 completed Not Available [facility] 11/16/2019 02:35:05 Past Encounters Encounter ID Performer Location Encounter Start Date Encounter Closed Date Diagnosis/Indication Diagnosis SNOMED-CT Code Diagnosis ICD10 Code Diagnosis IMO Codes Diagnosis Note [id number] Radha Pinon MD [facility] [address] [place] [address] 12/21/2007 11:11:00 12/21/2007 12:29:45 [id number] Radha Pinon MD [facility] [address] [place] [address] 05/07/2008 13:49:42 07/09/2009 01:23:50 [id number] Radha Pinon MD [facility] [address] [place] [address] 05/30/2008 15:01:12 05/30/2008 15:46:18 [id number] Topher Couch MD [facility] [address] [place] [phone] 06/10/2008 13:33:13 06/10/2008 14:06:47 [id number] Radha Pinon MD [facility] [address] [place] [phone] 12/15/2008 16:10:04 07/09/2009 01:23:50 [id number] Eliana Arreola MD [facility] [address] [place] [address] 05/29/2009 09:39:05 05/29/2009 10:35:56 [id number] Beau Hudson MD [facility] [address] [place] [address] 07/01/2009 11:31:23 07/01/2009 11:54:43 [id number] Beau Hudson MD [facility] [address] [place] [address] 02/16/2010 13:24:39 02/16/2010 13:57:59 [id number] Radha Pinon MD [facility] [address] [facility] [place] [address] 05/06/2010 16:11:24 05/06/2010 16:44:17 [id number] Radha Pinon MD [facility] [address] [place] [address] 06/16/2010 14:41:11 06/16/2010 15:22:29 [id number] Beau Hudson MD [facility] [address] [place] [address] 07/26/2010 13:05:58 07/26/2010 14:57:23 [id number] Radha Pinon MD [facility] [address] [place] [address] 08/06/2010 10:00:12 08/06/2010 10:40:13 [id number] Radha Pinon MD [facility] [address] [place] [address] 09/09/2010 16:27:03 09/09/2010 18:02:49 [id number] Joao Evans MD [facility] [address] [place] [address] 09/20/2010 09:15:38 09/20/2010 09:49:51 [id number] Radha Pinon MD [facility] [address] [place] [address] 10/07/2010 17:00:25 10/07/2010 17:47:47 [id number] Beau Hudson MD [facility] [address] [place] [address] 10/29/2010 10:55:50 10/29/2010 11:33:41 [id number] Radha Pinon MD [facility] [address] [place] [address] 11/05/2010 16:05:08 11/05/2010 17:52:48 Health Concerns Section Related Observation LastModified by Organization Detai ls LastModified Time None Recorded Concern Status LastModified by Organization Details LastModified Time None Recorded Advance Directives Directive None Recorded Payers Insurance Date Sequence Insurance Name Policy Number Policy Lowery Covered Member ID Lowery Member ID Guarantor Name 05/18/2021 1 [place] [facility] Katie Craft [id number] Dahlia Simon Notes Date Note Type Note Provider Name and Address Organization Details Recorded Time 09/09/2010 text/html RS Sick Visit Narrative HistoryReported by PatientHere for Consult re: behavioral issues. Also needs refill of acne meds please. (?EpiDuo)Has been in foster care 6 different places in 6 monthsHas been in 5 different schools in the past 6 monthsLD concernsAlways had trouble with academics as she was not in school a whole lotIs presently in [employer] 8th grade but should be in 7th grade- Self contained classroom- behaviorLikes to readSeems that there is discrepancy about her abilities and her school placement.Disc ? [facility] for developmental pedi clinic for evalFoster mom is concerned about hearing and so we will check her hearing todayIs in a special ed program (mainly life skills)Loves animalsWhispering horse for therapeutic ridingVanderbilts are NOT c/w ADHD or ADD but rather are c/w LD and emotional /behavioral problemsROS as noted in the HPI Radha altamirano [facility] 09/09/2010 17:42:04 09/20/2010 text/html RS Sick Visit Narrative HistoryReported by PatientR EAR PAIN X 2-3 D, SL COUGH, PND / SNIFFLES, EAR IS DRAINING, NO FEVER, ON ZYRTEC SYRUP X 4-5 D Joao altamirano [facility] 09/20/2010 09:47:13 10/07/2010 text/html RS Sick Visit Narrative HistoryReported by PatientHere for URI and ear pain (since hearing test was done 3 days agao- loss of hearing in R ear)Also c/o abd pain- no dysuria pain gone now and no more nausea eitherHad nausea earlier but is better nowNo fever and no vomitingROS as noted in the HPI Radha altamirano [facility] 10/07/2010 17:47:25 10/29/2010 text/html RS Sick Visit Narrative HistoryReported by PatientC/O bilatral ear pain x 1 wk intermittently. Pt just finished ABx for OM. No fever. No cough. + slight nasal congestion per foster mom but pt denies. Using Zyrtec. No sore throat. No ZAMUDIO. Also c/o growing pains to bilateral legs last noc. Has appt to see Dr. Escobar for abnormal hearing test Beau altamirano [facility] 10/29/2010 11:19:44 11/05/2010 text/html RS Sick Visit Narrative HistoryReported by PatientHere for Consult per SG.Here for consult aboutR HEARING LOSS- DR. ESCOBAR 11/17WELDNELIDA HEARING CHECK AGAIN on [facility] THERAPIST THINKS HEARING AIDS MIGHT BE HELPFULBULLYING AT SCHOOL- [facility] FOSTER MOM IS WORKING WITH THE SCHOOLFAMNLY VISIT- SAW MOM and SISTERS (3 older sisters live with MOM) COURT ORDERED- went well- played games with family- Dad not involved DSS won't let her see father- still in snf because he does bad stuffMIKAYLA and HER MOM ARE GOING TO START TO SEE THERAPIST SHANI ZHANG soon within the next few weeksSees her mom q o monthSchool is going so well that it is easy for her to do her homeworkTesting has not yet taken placeDoes like to readWas able to read proficiently off the internetShe is able to comprehend all discussions about herACNE is improving alsoTherapy feels like she needs to speak to someone to deal with control issues.Consider outside testing KISHORTHe Teo are working very hard to get Alycia the services that she needs.I feel that Alycia has much greater potential than what has been expected.[facility] to discuss this testingAllergies and on Zyrtec Radha altamirano [facility] 11/05/2010 17:52:27 OBGyn Episode No OBEpisode recorded.
== END 2025-09-05 14:07 | disposition home or self-care (01) ==
LOC: HO.HMCH 13:21
DX: N92.6 Irregular menstruation, unspecified (principal); R06.02 Shortness of breath; E66.9 Obesity, unspecified; Z68.37 Body mass index [BMI] 37.0-37.9, adult; R41.840 Attention and concentration deficit

== ENCOUNTER → 2025-09-05 13:20 | Outpatient (BNVA) | payer OTHER, SELFPAY | DX: R41.840 Attention and concentration deficit (principal); N92.6 Irregular menstruation, unspecified; R06.02 Shortness of breath; E66.9 Obesity, unspecified; J30.9 Allergic rhinitis, unspecified; Z68.37 Body mass index [BMI] 37.0-37.9, adult | CPT/HCPCS: 99202 ==

== ENCOUNTER 2025-09-30 15:18 | Outpatient (AMB) | payer OTHER, SELFPAY ==
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
[2025-09-30 15:25] VITALS: BP 120/64; PULSE 96; RESP 18; O2SAT 98; BMI 37.1
--- OUTSIDE RECORDS SUMMARY | 2025-09-30 17:00 | XMS_ITS | Clinical Summary ---
Author Organization [facility] Address [address] [place] [address] [place] [id number] Phone Care Team Providers Care Optometric Tech Name Role Phone Unknown, Unknown Primary Care [...] SPECIAL BILLING GENERIC SPECIAL BILLING Care Teams Optometric Tech Relationship Specialty Start Date End Date Unknown, Unknown, PCP - General 03/18/18 Additional Source Comments The information contained in this document represents components of the legal health record. It is not the complete legal health record[facility]
--- OUTSIDE RECORDS SUMMARY | 2025-09-30 17:00 | XMS_ITS | Data Portability ---
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 She is now in a foster placement with the [facility] that is nurturing, and caring and safe. I think that it will be good to get new evaluation from the school and then [facility] in about 3-4 months again. I wonder [...] internet passage that I picked out from [employer] without any trouble I doubt that her borderline IQ testing is accurate and the retesting is to take place with the [facility] psych soon I disc with mom that [...] child with hx of LD 2009 010 [facility] ([facility]), [address] [place] [address], [place], [address], 3 03:06:17 Procedures None recorded. Surgeries None recorded. Imaging None recorded. Medication Orders amoxicill in 400 mg/5 mL oral suspensio n [address] [id number], [address] [place] [address], [id number], 3 03:06:38 Zyrtec 10 mg chewable tablet [address] [facility][id number], [address] [place], [place], [id number], 3 03:06:17 Patient TargetsNo targets recorded. Patient Instructions Encounter Date Encounter Id Patient Instructions Last Modified By Organization Details Last Modified Time 09/09/2010 [id number] hearing screening* CYNTHIA Not available 05/24/2013 03:06:17 Disc with Mrs. Harry that I would like to be involved in the school issues involving Alycia [id number] Not available 05/30/2011 02:09:26 09/20/2010 [id number] Rx: Claritin-D x 7 d d/c Zyrtec for now [id number] Not available 07/13/2011 02:02:01 10/29/2010 [id number] valsalva; observe; await ENT (hearing eval) ; NO Q TIPS [id number] Not available 05/30/2011 02:09:15 Reason for Referral please eval hearing in this child with hx of LD Referring Physician: Radha Pinon, Pediatric Medicine, Encounter Date: 09/09/2010 Results Created Date Observation Date Name Description Value Unit Range Abnormal Flag Note LastModifiedBy Organization Detail LastModifiedTime 09/09/20 10 09/09/2010 hearleslie rodriguez scree braden* Right Fail Not Available [facility] [address] [place] [address], [phone], 09/09/2010 17:11:29 09/09/20 10 09/09/2010 hearleslie rodriguez scree braden* Left Pass Not Available [facility] [address] [place] [address], [phone], 09/09/2010 17:11:29 Result Notes None recorded. Problems Name Problem SNOMED Code Status Onset Date Resolution Date Notes Provider Name and Address Organization Details Recorded Time Contusion 276324439 Completed 08/06/2010 Not Available [facility] 3 03:02:03 Adjustment disorder 27619730 Active Not Available [facility] 3 03:02:03 Allergic rhinitis 61246458 Active Not Available [facility] 3 03:02:03 Impacted cerumen 50118182 Completed 08/06/2010 Not Available [facility] 3 03:02:03 Sprain of ankle 54796051 Completed 08/06/2010 Not Available [facility] 3 03:02:03 Nonvenomou s insect bite of multiple sites 562904439 Completed 08/06/2010 Not Available [facility] 3 03:02:03 Single major depressive episode Active Not Available [facility] 3 03:02:03 Dysfunctio n of eustachian tube 09398338 Active Not Available [facility] 3 03:02:03 Non-suppur ative otitis media with eustachian tube disorder 169733820 Active Not Available [facility] 3 03:02:03 Speech and language developmen rufina delay due to hearing loss 720479425 Active Not Available [facility] 3 03:02:03 Otalgia 61444227 Active Not Available [facility] 3 03:02:03 Unilateral sensorineu ral hearing loss with unrestrict ed hearing on the contralate ral side Active Not Available [facility] 3 03:02:03 Constipati on 03360939 Active 2007 Not Available [facility] 3 03:02:03 Nervous system symptoms Active 2007 Not Available [facility] 3 03:02:03 Acne 92011977 Active 2007 Not Available [facility] 3 03:02:03 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 Procedures Surgical History Date Name Laterality Status Provider Name and Address Organization Details Recorded Time 0 Wax Removal with Curette Unilateral With or Without Irrigation completed Beau Hudson MA - [facility] 07/26/2010 13:43:51 Imaging Results None [...] propionate 50 mcg/actuat ion nasal spray,susp ension Lynd 2 sprays every day by intranas al [...] Details Last Updated DateTime 11/05/2010 163.195 cm 45351.49553 g 25.4 kg/m2 [facility] 11/05/2010 16:33:24 Date Recorded Body height Body weight Body mass index (BMI) Systolic And Diastolic Provider Name and Address Organization Details Last Updated DateTime 09/09/2010 162.56 cm 61038.097 465 g 24.8 kg/m2 110/72 mm[Hg] [facility] 09/09/2010 16:36:59 Social History Question Answer Notes LastModified by Organizat ion Details LastModified Time Parent's Marital Status Unmarried NEW FOSTER PLACEMENT WITH THE [facility] FAMILY [email or web address] Information not available 09/03/2011 Siblings Names And Birthdates Pearl, Renita, Dali,ajith, Evie [email or web address]_ [email or web address] Information not available 09/03/2011 Parent's Name Dahlia Fabian Moved Out Of [facility] In 06/08 [email or web address]_ [id number] Information not [...] Recorded Time IPV 0 completed Not Available [facility] 09/03/2011 03:18:24 meningococcal ACWY, unspecified formulation 8 completed Not Available [facility] 09/03/2011 03:19:20 Hep B, unspecified formulation 7 completed Not Available [facility] 09/03/2011 03:18:24 IPV 0 completed Not Available [facility] 09/03/2011 03:18:24 Hep B, unspecified formulation 7 completed Not Available [facility] 09/03/2011 03:18:24 IPV 1 completed Not Available [facility] 09/03/2011 03:18:24 DTaP, unspecified formulation 7 completed Not Available [facility] 09/03/2011 03:18:24 MMR 0 completed Not Available [facility] 09/03/2011 03:18:24 Hib, unspecified formulation 0 completed Not Available [facility] 09/03/2011 03:18:24 DTaP, unspecified formulation 0 completed Not Available [facility] 09/03/2011 03:18:24 Hib, unspecified formulation 7 completed Not Available [facility] 09/03/2011 03:18:24 DTaP, unspecified formulation 0 completed Not Available [facility] 09/03/2011 03:18:24 Hep B, unspecified formulation 0 completed Not Available [facility] 09/03/2011 03:18:24 MMR 1 completed Not Available [facility] 09/03/2011 03:19:20 DTaP, unspecified formulation 1 completed Not Available [facility] 09/03/2011 03:18:24 IPV 7 completed Not Available [facility] 09/03/2011 03:18:24 Tdap 8 completed Not Available [facility] 09/03/2011 03:18:24 Influenza, split virus, trivalent, preservative 0 completed Not Available [facility] 11/16/2019 02:35:05 Past Encounters Encounter ID Performer Location Encounter Start Date Encounter Closed Date Diagnosis/Indication Diagnosis SNOMED-CT Code Diagnosis ICD10 Code Diagnosis IMO Codes Diagnosis Note [id number] Radha Pinon MD [facility] [address] [place] [address] 12/21/2007 11:11:00 12/21/2007 12:29:45 [id number] Radha Pinon MD [facility] [address] [place] [phone] 05/07/2008 13:49:42 07/09/2009 01:23:50 [id number] Radha Pinon MD [facility] [address] [place] [phone] 05/30/2008 15:01:12 05/30/2008 15:46:18 [id number] Topher Couch MD [facility] [address] [place] [phone] 06/10/2008 13:33:13 06/10/2008 14:06:47 [id number] Radha Pinon MD [facility] [address] [place] [phone] 12/15/2008 16:10:04 07/09/2009 01:23:50 [id number] Elaina Arreola MD [facility] [address] [place] [phone] 05/29/2009 09:39:05 05/29/2009 10:35:56 [id number] Beau Hudson MD [facility] [address] [place] [phone] 07/01/2009 11:31:23 07/01/2009 11:54:43 [id number] Beau Hudson MD [facility] [address] [place] [address] 02/16/2010 13:24:39 02/16/2010 13:57:59 [id number] Radha Pinon MD [facility] [address] [facility] [place] [address] 05/06/2010 16:11:24 05/06/2010 16:44:17 [id number] Radha Pinon MD [facility] [address] [place] [address] 06/16/2010 14:41:11 06/16/2010 15:22:29 [id number] Beau Hudson MD [facility] [address] [place] [address] 07/26/2010 13:05:58 07/26/2010 14:57:23 [id number] Radha Pinon MD [facility] [address] [place] [address] 08/06/2010 10:00:12 08/06/2010 10:40:13 [id number] Radha Pinon MD [facility] [address] [place] [address] 09/09/2010 16:27:03 09/09/2010 18:02:49 [id number] Joao Evans MD [facility] [address] [place] [address] 09/20/2010 09:15:38 09/20/2010 09:49:51 [id number] Radha Pinon MD [facility] [address] [place] [address] 10/07/2010 17:00:25 10/07/2010 17:47:47 [id number] Beau Hudson MD [facility] [address] [place] [address] 10/29/2010 10:55:50 10/29/2010 11:33:41 [id number] Radha Pinon MD [facility] [address] [place] [address] 11/05/2010 16:05:08 11/05/2010 17:52:48 Health Concerns Section Related Observation LastModified by Organization Detai ls LastModified Time None Recorded Concern Status LastModified by Organization Details LastModified Time None Recorded Advance Directives Directive None Recorded Payers Insurance Date Sequence Insurance Name Policy Number Policy Lowery Covered Member ID Lowery Member ID Guarantor Name 05/18/2021 1 [place] [facility] Katie Craft [id number] Dahlia Simon Notes Date Note Type Note [...] her abilities and her school placement.Disc ? [facility] for developmental pedi clinic for evalFoster mom is concerned about hearing and so we will check her hearing todayIs in a special ed program (mainly life skills)Loves animalsWhispering horse for therapeutic ridingVanderbilts are NOT c/w ADHD or ADD but rather are c/w LD and emotional /behavioral problemsROS as noted in the HPI Radha altamirano [facility] 09/09/2010 17:42:04 09/20/2010 text/html RS Sick Visit Narrative HistoryReported by PatientR EAR PAIN X 2-3 D, SL COUGH, PND / SNIFFLES, EAR IS DRAINING, NO FEVER, ON ZYRTEC SYRUP X 4-5 D Joao altamirano [facility] 09/20/2010 09:47:13 10/07/2010 text/html RS Sick Visit Narrative HistoryReported by PatientHere for URI and ear pain (since hearing test was done 3 days agao- loss of hearing in R ear)Also c/o abd pain- no dysuria pain gone now and no more nausea eitherHad nausea earlier but is better nowNo fever and no vomitingROS as noted in the HPI Radha altamirano [facility] 10/07/2010 17:47:25 10/29/2010 text/html RS Sick [...] Escobar for abnormal hearing test Beau altamirano [facility] 10/29/2010 11:19:44 11/05/2010 text/html RS Sick Visit Narrative HistoryReported by PatientHere for Consult per SG.Here for consult aboutR HEARING LOSS- DR. ESCOBAR 11/17WELDNELIDA HEARING CHECK AGAIN on [facility] THERAPIST THINKS HEARING AIDS MIGHT BE HELPFULBULLYING AT SCHOOL- [facility] FOST[facility] MOM IS WORKING WITH THE SCHOOLFACOLY VISIT- SAW MOM and SISTERS (3 older sisters live with MOM) COURT ORDERED- went well- played games with family- Dad not involved DSS won't let her see father- still in assisted because he does bad stuffMIKAYLA and HER [...] been expected.I will call [facility] to discuss this testingAllergies and on Zyrtec Radha altamirano MA [facility] 11/05/2010 17:52:27 OBGyn Episode No OBEpisode recorded.
== END 2025-09-30 16:06 | disposition home or self-care (01) ==
LOC: HO.HMCH 15:19
PROVIDERS: Visit Provider Internal Medicine
DX: M79.671 Pain in right foot (principal); L23.9 Allergic contact dermatitis, unspecified cause; E66.9 Obesity, unspecified; Z68.37 Body mass index [BMI] 37.0-37.9, adult; M79.672 Pain in left foot; R73.9 Hyperglycemia, unspecified

== ENCOUNTER → 2025-09-30 15:18 | Outpatient (BNVA) | payer OTHER, SELFPAY | PROVIDERS: Visit Provider Internal Medicine | DX: M79.671 Pain in right foot (principal); M79.672 Pain in left foot; L23.9 Allergic contact dermatitis, unspecified cause; E66.9 Obesity, unspecified; R73.9 Hyperglycemia, unspecified | CPT/HCPCS: 99212 ==